=== PATIENT | male | born 1975 | race Caucasian/White ===

== ENCOUNTER 2019-12-04 00:58 | Emergency (ER) | payer OTHER ==
[2019-12-04 02:20] LABS: Barbiturates NEGATIVE (NEGATIVE); Benzodiazepines POSITIVE (NEGATIVE); Cocaine NEGATIVE (NEGATIVE); METHAMPHETAM POSITIVE (NEGATIVE); Methadone NEGATIVE (NEGATIVE); Opiates NEGATIVE (NEGATIVE); Phencyclidine NEGATIVE (NEGATIVE); THC Cannibis POSITIVE (NEGATIVE)
--- NOTE | 2019-12-04 02:42 | ER ---
Nurse's Notes [facility] Name: Karl Hinojosa Age: 44 yrs Sex: Male : 1975 Arrival Date: 12/04/2019 Time: 00:59 Bed 17 Private MD: Diagnosis: Hallucinations. Substances Abuse Presentation: 12/04 01:09 Chief complaint: EMS states: They were toned by Hotel staff because Pt was seeing and wh hearing witches. Pt states he sees and hears the witches. Pt admits to taking small amount of amphetamines prior to having the hallucinations. Pt with Hx of Bipolar and Schizophrenia with prescription meds. Coronavirus screen: The patient has NOT traveled to [place] in the past 14 days. Ebola Screen: Patient negative for fever greater than or equal to 101.5 degrees Fahrenheit, and additional compatible Ebola Virus Disease symptoms Patient denies exposure to infectious person. Initial Sepsis Screen: Does the patient meet any 2 criteria? No. Patient's initial sepsis screen is negative. Does the patient have a suspected source of infection? No. Patient's initial sepsis screen is negative. Risk Assessment: Do you want to hurt yourself or someone else? Patient reports no desire to harm self or others. 01:09 Method Of Arrival: EMS: [facility] 01:09 Acuity: JENSEN 3 01:16 Onset of symptoms is unknown. Historical: - Allergies: 01:14 No Known Allergies; wh - PMHx: 01:14 Anxiety; Bipolar disorder; Hypertension; Schizophrenia; CVA; wh - PSHx: 01:14 Brain Surgery; Fistula; - Immunization history:: Adult Immunizations not up to date. - Social history:: Smoking status: Patient uses street drugs, marijuana, Methamphetamine (Meth) Patient/guardian denies using. Screenin:15 Abuse screen: Denies threats or abuse. Denies injuries from another. Nutritional screening: No deficits noted. Tuberculosis screening: No symptoms or risk factors identified. Fall Risk None identified. Assessment: 01:15 General: Appears in no apparent distress. Behavior is calm, cooperative, appropriate wh for age. Pain: Denies pain. Neuro: Level of Consciousness is awake, alert, obeys commands, Oriented to person, place, time, situation, Appropriate for age Reports visual and auditory hallucinations. Cardiovascular: Heart tones S1 S2. Respiratory: Airway is patent Respiratory effort is even, unlabored, Respiratory pattern is regular, symmetrical. GI: Abdomen is flat, non-distended. : No signs and/or symptoms were reported regarding the genitourinary system. EENT: No signs and/or symptoms were reported regarding the EENT system. Derm: Skin is intact, is healthy with good turgor, Skin is pink, warm \T\ dry. normal. Musculoskeletal: Circulation, motion, and sensation intact. 01:30 Reassessment: Pt alert and oriented X4, speaking with MD Haywood, stating he doesn't want to stay here nor any psyche facility. Pt admits drug use and hallucinations. Pt asking to be discharged. 02:45 Reassessment: Patient appears in no apparent distress at this time. No changes from previously documented assessment. Patient and/or family updated on plan of care and expected duration. Pain level reassessed. Patient is alert, oriented x 3, equal unlabored respirations, skin warm/dry/pink. Vital Signs: 01:09 BP 141 / 101; Pulse 89; Resp 18; Temp 98.3; Pulse Ox 100% ; Weight 63.5 kg; Height 5 wh ft. 7 in. (170.18 cm); 02:30 BP 138 / 98; Pulse 54; Resp 18; Pulse Ox 99% ; wh 01:09 Body Mass Index 21.93 (63.50 kg, 170.18 cm) ED Course: 00:59 Patient arrived in ED. ds1 01:01 Mark Haywood MD is Attending Physician. pkl 01:09 Harry Boyce is Primary Nurse. 01:12 Triage completed. 01:16 Arm band placed on right wrist. 01:17 Patient has correct armband on for positive identification. Bed in low position. Call light in reach. Side rails up X 1. Pulse ox on. NIBP on. 02:55 No provider procedures requiring assistance completed. Patient did not have IV access during this emergency room visit. Administered Medications: No medications were administered Outcome: 02:40 Discharge ordered by . pkl 02:55 Discharged to home ambulatory. wh 02:55 Condition: stable 02:55 Discharge instructions given to patient, Instructed on discharge instructions, follow up and referral plans. POC Demonstrated understanding of instructions, follow-up care, POC 02:55 Patient left the ED. wh Signatures: Mark Haywood MD MD pkl [place], [place] ds1 Harry Boyce Corrections: (The following items were deleted from the chart) 02:51 01:09 Chief complaint: EMS states: They were toned by Pt as he was seeing and hearing wh witches. Pt states he sees and hears the witches. Pt admits to taking small amount of amphetamines prior to having the hallucinations. Pt with Hx of Bipolar and Schizophrenia with prescription meds
--- NOTE | 2019-12-04 02:42 | EDPHYS ---
Physician Documentation [facility] Name: Karl Hinojosa Age: 44 yrs Sex: Male : 1975 Arrival Date: 12/04/2019 Time: 00:59 Bed 17 Private MD: ED Physician Mark Haywood HPI: 12/04 01:34 This 44 yrs old Male presents to ER via EMS with complaints of Hallucination. pkl 01:34 The patient presents to the emergency department with Patient having visual and pkl auditory hallucinations. Onset: The symptoms/episode began/occurred today. Past psychiatric history: Bipolar disorder. Associated signs and symptoms: The patient has no apparent associated signs or symptoms. Historical: - Allergies: :14 No Known Allergies; wh - PMHx: :14 Anxiety; Bipolar disorder; Hypertension; Schizophrenia; CVA; wh - PSHx: :14 Brain Surgery; Fistula; wh - Immunization history:: Adult Immunizations not up to date. - Social history:: Smoking status: Patient uses street drugs, marijuana, Methamphetamine (Meth) Patient/guardian denies using. ROS: 01:34 Eyes: Negative for injury, pain, redness, and discharge, ENT: Negative for injury, pkl pain, and discharge, Neck: Negative for injury, pain, and swelling, Cardiovascular: Negative for chest pain, palpitations, and edema, Respiratory: Negative for shortness of breath, cough, wheezing, and pleuritic chest pain, Abdomen/GI: Negative for abdominal pain, nausea, vomiting, diarrhea, and constipation, Back: Negative for injury and pain, : Negative for injury, bleeding, discharge, and swelling, MS/Extremity: Negative for injury and deformity, Skin: Negative for injury, rash, and discoloration, Neuro: Negative for headache, weakness, numbness, tingling, and seizure. 01:34 Psych: Positive for auditory hallucinations, visual hallucinations, Negative for suicide gesture, suicidal ideation. Exam: 01:34 Head/Face: Normocephalic, atraumatic. Eyes: Pupils equal round and reactive to light, pkl extra-ocular motions intact. Lids and lashes normal. Conjunctiva and sclera are non-icteric and not injected. Cornea within normal limits. Periorbital areas with no swelling, redness, or edema. ENT: Nares patent. No nasal discharge, no septal abnormalities noted. Tympanic membranes are normal and external auditory canals are clear. Oropharynx with no redness, swelling, or masses, exudates, or evidence of obstruction, uvula midline. Mucous membranes moist. Neck: Trachea midline, no thyromegaly or masses palpated, and no cervical lymphadenopathy. Supple, full range of motion without nuchal rigidity, or vertebral point tenderness. No Meningismus. Chest/axilla: Normal chest wall appearance and motion. Nontender with no deformity. No lesions are appreciated. Cardiovascular: Regular rate and rhythm with a normal S1 and S2. No gallops, murmurs, or rubs. Normal PMI, no JVD. No pulse deficits. Respiratory: Lungs have equal breath sounds bilaterally, clear to auscultation and percussion. No rales, rhonchi or wheezes noted. No increased work of breathing, no retractions or nasal flaring. Abdomen/GI: Soft, non-tender, with normal bowel sounds. No distension or tympany. No guarding or rebound. No evidence of tenderness throughout. Back: No spinal tenderness. No costovertebral tenderness. Full range of motion. Skin: Warm, dry with normal turgor. Normal color with no rashes, no lesions, and no evidence of cellulitis. MS/ Extremity: Pulses equal, no cyanosis. Neurovascular intact. Full, normal range of motion. Neuro: Awake and alert, GCS 15, oriented to person, place, time, and situation. Cranial nerves II-XII grossly intact. Motor strength 5/5 in all extremities. Sensory grossly intact. Cerebellar exam normal. Normal gait. 01:34 Psych: Behavior/mood is cooperative, Affect is calm, Patient has no thoughts/intents to harm self or others. Delusions/hallucinations are present and described as Seeing and hearing witches. Said he took some amphetamines earlier today. Patient not suicidal or homicidal. Does not want to be transferred to psychiatric facility. Vital Signs: 01:09 BP 141 / 101; Pulse 89; Resp 18; Temp 98.3; Pulse Ox 100% ; Weight 63.5 kg; Height 5 wh ft. 7 in. (170.18 cm); 02:30 BP 138 / 98; Pulse 54; Resp 18; Pulse Ox 99% ; wh 01:09 Body Mass Index 21.93 (63.50 kg, 170.18 cm) wh MDM: 01:01 Patient medically screened. pkl 02:38 Data reviewed: vital signs, nurses notes, lab test result(s). pkl 12/04 01:43 Order name: Urine Drug Screen; Complete Time: 02:36 Administered Medications: No medications were administered Disposition: 12/04/19 02:40 Discharged to Home. Impression: Hallucinations. Substances Abuse. - Condition is Stable. - Discharge Instructions: What You Need To Know About Illegal Drug Use and Dependence, Youth. - Medication Reconciliation Form, Thank You Letter, Antibiotic Education, Prescription Opioid Use form. - Follow up: Private Physician; When: 2 - 3 days; Reason: Re-evaluation by your physician. - Problem is new. - Symptoms have improved. Signatures: Dispatcher [employer] EDMark Che MD MD pkl [place], [place] Corrections: (The following items were deleted from the chart) 02:55 02:40 12/04/2019 02:40 Discharged to Home. Impression: Hallucinations. Substances wh Abuse. Condition is Stable. Forms are Medication Reconciliation Form, Thank You Letter, Antibiotic Education, Prescription Opioid Use. Follow up: Private Physician; When: 2 - 3 days; Reason: Re-evaluation by your physician. Problem is new. Symptoms have improved. pkl
[2019-12-04 03:05] VITALS: TEMP 98.3
[2019-12-04 03:06] VITALS: BP 138/98; O2SAT 99
== END 2019-12-04 02:55 | disposition home or self-care (01) ==
LOC: ER 00:58
DX: R44.1 Visual hallucinations (principal); F15.10 Other stimulant abuse, uncomplicated
CPT/HCPCS: 80307; 99283

== ENCOUNTER 2019-12-16 06:50 | Emergency (ER) | payer OTHER ==
[2019-12-16 08:45] LABS: Absolute Lymphocytes (CBC) 1.4 K/uL (0.7-4.9); Basophils % 0.6 % (0-1.3); Hematocrit 40.2 % (39.6-49.0); Lymphocytes % 15.9 % (15.3-44.8); RBC Red Blood Cell Count 4.73 M/uL (4.33-5.43)
[2019-12-16 08:50] LABS: Protime INR 3.96
[2019-12-16 09:02] LABS: ALT/SGPT 36 U/L (12-78); AST/SGOT 128 U/L (15-37); Albumin 4.3 g/dL (3.4-5.0); Alkaline Phosphatase 69 U/L (45-117); BUN Blood Urea Nitrogen 36 mg/dL (7-18); Bicarbonate 26 mmol/L (21-32); Bilirubin Direct 0.1 mg/dL (0-0.2); Bilirubin Total 0.5 mg/dL (0.2-1.0); Glucose Level 159 mg/dL (74-106); Potassium 3.4 mmol/L (3.5-5.1); Protein, Total 7.8 g/dL (6.4-8.2); Sodium Level 144 mmol/L (136-145)
[2019-12-16] MEDS ORDERED: NA CHLORIDE 0.9% 1,000 ML ONE (09:26)
[2019-12-16] MEDS ORDERED: POTASSIUM CL SA 10 MEQ TAB PO ONE (10:42)
--- NOTE | 2019-12-16 11:27 | EKG ---
Test Date: 2019-12-16 Test Time: 08:47:02 Iron Setter: HENRY MEASUREMENT RESULTS: Intervals: Rate: 90 [place]: 142 QRSD: 84 QT: 374 QTc: 457 [place]: P: 67 [place]: 142 QRS: 89 T: 74 INTERPRETIVE STATEMENTS: Normal sinus rhythm Normal ECG No previous ECG available for comparison Electronically Signed On 12-16-19 11:26:49 CDT by Jaden Toro
[2019-12-16 11:57] LABS: Barbiturates NEGATIVE (NEGATIVE); Benzodiazepines POSITIVE (NEGATIVE); Cocaine NEGATIVE (NEGATIVE); METHAMPHETAM POSITIVE (NEGATIVE); Methadone NEGATIVE (NEGATIVE); Opiates NEGATIVE (NEGATIVE); Phencyclidine NEGATIVE (NEGATIVE); THC Cannibis POSITIVE (NEGATIVE)
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
--- NOTE | 2019-12-16 12:52 | ER ---
Nurse's Notes [facility] Name: Karl Hinojosa Age: 44 yrs Sex: Male : 1975 Arrival Date: 12/16/2019 Time: 06:57 Bed 5 Private MD: Diagnosis: Visual hallucinations;Schizoaffective disorder, bipolar type;Acute Psychosis Presentation: 12/15 07:13 Chief complaint: Patient states: "people were in my house last night and wouldn't leave dm5 so I punched the window". Visitor with patient states that no one was in house when she went by, the police even came by and didn't see anyone. Pt has history of bipolar with psychotic features. Pt also has history of strokes. Coronavirus screen: The patient has NOT traveled to a country currently being monitored by the [facility] within the last 14 days. The patient has NOT had contact with any known and/or suspected case of coronavirus. Ebola Screen: Patient negative for fever greater than or equal to 101.5 degrees Fahrenheit, and additional compatible Ebola Virus Disease symptoms Patient denies exposure to infectious person. Patient denies travel to an Ebola-affected area in the 21 days before illness onset. No symptoms or risks identified at this time. Complicating Factors: Glass or an other foreign body is present in the wound. Initial Sepsis Screen: Does the patient meet any 2 criteria? No. Patient's initial sepsis screen is negative. Does the patient have a suspected source of infection? No. Patient's initial sepsis screen is negative. Risk Assessment: Do you want to hurt yourself or someone else? Patient reports no desire to harm self or others. Note pt denies wanting to hurt himself. Pt on unknown antipsychotic, last taken last night, visitor would like pt to get help. 07:13 Method Of Arrival: Ambulatory dm5 07:46 Acuity: JENSEN 2 dm5 16:25 Onset of symptoms was December 16, 2019. tw2 Historical: - Allergies: 07:45 No Known Allergies; dm5 - PMHx: 07:45 Anxiety; Bipolar disorder; CVA; Hypertension; Schizophrenia; dm5 - Immunization history:: Last tetanus immunization: unknown. - Social history:: Smoking status: . Screenin:24 Abuse screen: Denies threats or abuse. Nutritional screening: No deficits noted. tw2 Tuberculosis screening: No symptoms or risk factors identified. Fall Risk None identified. Assessment: 07:01 General: Appears in no apparent distress. Behavior is anxious. Pain: Complains of pain tw2 in right hand. Neuro: Level of Consciousness is awake, alert, obeys commands, Oriented to person, place, time, situation. Cardiovascular: Heart tones S1 S2 Patient's skin is warm and dry. Respiratory: Airway is patent Respiratory effort is even, unlabored, Respiratory pattern is regular, symmetrical, Breath sounds are clear bilaterally. GI: No signs and/or symptoms were reported involving the gastrointestinal system. Abdomen is flat. 07:01 Musculoskeletal: Circulation, motion, and sensation intact. Range of motion: intact in tw2 all extremities. Injury Description: Laceration sustained to right hand is clean, superficial, 0.5 to 2.5 cm long, not bleeding. 08:30 Reassessment: Patient appears in no apparent distress at this time. Patient and/or tw2 family updated on plan of care and expected duration. Pain level reassessed. Patient is alert, oriented x 3, equal unlabored respirations, skin warm/dry/pink. 08:30 General: Behavior is pt appears to be paranoid, states "i am concerned about the tw2 curtain, can we leave it open", exam room curtain left open for pts comfort and providers recommendation. 09:23 Reassessment: Patient appears in no apparent distress at this time. Patient and/or tw2 family updated on plan of care and expected duration. Pain level reassessed. Patient is alert, oriented x 3, equal unlabored respirations, skin warm/dry/pink. 10:30 Reassessment: Patient appears in no apparent distress at this time. Patient and/or hb family updated on plan of care and expected duration. Pain level reassessed. Patient is alert, oriented x 3, equal unlabored respirations, skin warm/dry/pink. 11:30 Reassessment: Patient appears in no apparent distress at this time. No changes from previously documented assessment. Patient and/or family updated on plan of care and expected duration. Pain level reassessed. 11:56 Reassessment: Nurse to nurse report given to Leta at [facility]. 12:15 Reassessment: Patient appears in no apparent distress at this time. Patient and/or hb family updated on plan of care and expected duration. Pain level reassessed. Patient is alert, oriented x 3, equal unlabored respirations, skin warm/dry/pink. 13:15 Reassessment: Patient appears in no apparent distress at this time. Patient and/or hb family updated on plan of care and expected duration. Pain level reassessed. Patient is alert, oriented x 3, equal unlabored respirations, skin warm/dry/pink. Vital Signs: 07:12 BP 126 / 95; Pulse 94; Resp 18; Temp 98.2; Pulse Ox 100% ; Weight 63.5 kg; Height 5 ft. hb 7 in. (170.18 cm); Pain 0/10; 08:30 BP 144 / 92; Pulse 94; Resp 19; Pulse Ox 99% on R/A; tw2 09:21 BP 132 / 101; Pulse 90; Resp 17; Pulse Ox 100% on R/A; tw2 11:00 BP 156 / 86; Pulse 88; Resp 15; Pulse Ox 99% on R/A; hb 13:00 BP 146 / 84; Pulse 81; Resp 16; Pulse Ox 99% on R/A; hb 07:12 Body Mass Index 21.93 (63.50 kg, 170.18 cm) hb ED Course: 06:57 Patient arrived in ED. ds1 07:01 Bed in low position. Call light in reach. Pulse ox on. NIBP on. tw2 07:02 Horacio Fraga PA is PHCP. jr8 07:02 Herrera Bull MD is Attending Physician. jr8 07:06 Aurelia Sanders, RN is Primary Nurse. tw2 07:16 Triage completed. dm5 08:28 Initial lab(s) drawn, by mt, sent to lab. Inserted saline lock: 22 gauge in right jb1 antecubital area, using aseptic technique. Blood collected. 08:50 EKG done, by mechanical design technician. reviewed by Horacio CLEANING. at1 09:31 Arm band placed on. tw2 11:43 faxed chart to [facility]. bd 16:25 No provider procedures requiring assistance completed. Patient transferred, IV remains tw2 in place. Patient maintains SpO2 saturation greater than 95% on room air. Administered Medications: 09:25 Drug: NS 0.9% 1000 ml Route: IV; Rate: 1000 ml; Site: right antecubital; hb 10:50 Drug: Potassium Chloride 40 mEq Route: PO; hb Outcome: 12:50 ER care complete, transfer ordered by MD. cross 16:25 Patient left the ED. tw2 16:25 Transferred by ground EMS tw2 16:25 Condition: stable 16:25 Instructed on the need for transfer. Signatures: Karl [place] jb1 Sunita Clemons Deana RN RN dm5 Hawa Wright1 Horacio Fraga PA PA jr8 Marianna Delgado, manager paper EKG Tat1 Olive Virk RN RN Aurelia Sanders RN RN tw2 Corrections: (The following items were deleted from the chart) 07:46 07:13 Acuity: JENSEN 4 dm5 dm5 12:00 11:56 Reassessment: Nurse to nurse report given to Leta hb hb
[2019-12-16 16:34] VITALS: TEMP 98.2
[2019-12-16 16:39] VITALS: O2SAT 99
[2019-12-16 16:40] VITALS: BP 146/84
== END 2019-12-16 16:25 ==
LOC: ER 06:50
DX: F25.9 Schizoaffective disorder, unspecified (principal); F23 Brief psychotic disorder
CPT/HCPCS: 93005; 85025; 80048; 36415; 80320; 80329 ×2; 85610; 80076; 80307 ×8; 85730; 99285; J7030

== ENCOUNTER 2019-12-30 01:25 | Emergency (ER) | payer OTHER ==
[2019-12-30 02:11] LABS: Barbiturates NEGATIVE (NEGATIVE); Benzodiazepines POSITIVE (NEGATIVE); Cocaine NEGATIVE (NEGATIVE); METHAMPHETAM POSITIVE (NEGATIVE); Methadone NEGATIVE (NEGATIVE); Opiates NEGATIVE (NEGATIVE); Phencyclidine NEGATIVE (NEGATIVE); THC Cannibis POSITIVE (NEGATIVE)
[2019-12-30 02:14] LABS: Absolute Lymphocytes (CBC) 1.7 K/uL (0.7-4.9); Basophils % 0.9 % (0-1.3); Hematocrit 37.7 % (39.6-49.0); Lymphocytes % 31.3 % (15.3-44.8); MPV 7.4 fL (7.6-11.3)
[2019-12-30 02:18] LABS: Protime INR 2.52
[2019-12-30] MEDS ORDERED: NA CHLORIDE 0.9% 1,000 ML ONE (02:25)
[2019-12-30 02:48] LABS: Albumin 4.2 g/dL (3.4-5.0); Bilirubin Direct 0.1 mg/dL (0-0.2); Bilirubin Total 0.5 mg/dL (0.2-1.0); Potassium 3.4 mmol/L (3.5-5.1); Protein, Total 7.3 g/dL (6.4-8.2)
--- NOTE | 2019-12-30 03:13 | EDPHYS ---
Physician Documentation [facility] Name: Karl Hinojosa Age: 44 yrs Sex: Male : 1975 Arrival Date: 12/30/2019 Time: : Bed 20 Private MD: FABIOLA Physician Fawad Seals HPI: 12/29 03:09 This 44 yrs old Male presents to ER via Ambulatory with complaints of Psych howie Problem. 03:09 The patient presents to the emergency department with psychosis, has experienced howie auditory hallucinations, has experienced visual hallucinations. Onset: The symptoms/episode began/occurred 2 day(s) ago. Past psychiatric history: Prior diagnosis: bipolar disorder. Associated signs and symptoms: The patient has no apparent associated signs or symptoms. Severity of symptoms: At their worst the symptoms were mild in the emergency department the symptoms are unchanged. It is unknown whether or not the patient has had similar symptoms in the past. Historical: - Allergies: 01:51 No Known Allergies; rv - PMHx: 01:51 Anxiety; Bipolar disorder; CVA; Hypertension; Schizophrenia; rv - Immunization history:: Adult Immunizations up to date. - Social history:: Smoking status: Patient reports the use of cigarette tobacco products, denies chronic smoking, but will smoke occasionally. - Family history:: not pertinent. ROS: 03:09 Constitutional: Negative for fever, chills, and weight loss, Eyes: Negative for injury, howie pain, redness, and discharge, ENT: Negative for injury, pain, and discharge, Neck: Negative for injury, pain, and swelling, Cardiovascular: Negative for chest pain, palpitations, and edema, Respiratory: Negative for shortness of breath, cough, wheezing, and pleuritic chest pain, Abdomen/GI: Negative for abdominal pain, nausea, vomiting, diarrhea, and constipation, Back: Negative for injury and pain, : Negative for injury, bleeding, discharge, and swelling, MS/Extremity: Negative for injury and deformity, Skin: Negative for injury, rash, and discoloration, Neuro: Negative for headache, weakness, numbness, tingling, and seizure, Allergy/Immunology: Negative for hives, rash, and allergies, Endocrine: Negative for neck swelling, polydipsia, polyuria, polyphagia, and marked weight changes, Hematologic/Lymphatic: Negative for swollen nodes, abnormal bleeding, and unusual bruising. 03:09 Psych: Positive for auditory hallucinations, visual hallucinations. Exam: 03:09 Constitutional: This is a well developed, well nourished patient who is awake, alert, howie and in no acute distress. Head/Face: Normocephalic, atraumatic. Eyes: Pupils equal round and reactive to light, extra-ocular motions intact. Lids and lashes normal. Conjunctiva and sclera are non-icteric and not injected. Cornea within normal limits. Periorbital areas with no swelling, redness, or edema. ENT: Nares patent. No nasal discharge, no septal abnormalities noted. Tympanic membranes are normal and external auditory canals are clear. Oropharynx with no redness, swelling, or masses, exudates, or evidence of obstruction, uvula midline. Mucous membranes moist. Neck: Trachea midline, no thyromegaly or masses palpated, and no cervical lymphadenopathy. Supple, full range of motion without nuchal rigidity, or vertebral point tenderness. No Meningismus. Chest/axilla: Normal chest wall appearance and motion. Nontender with no deformity. No lesions are appreciated. Cardiovascular: Regular rate and rhythm with a normal S1 and S2. No gallops, murmurs, or rubs. Normal PMI, no JVD. No pulse deficits. Respiratory: Lungs have equal breath sounds bilaterally, clear to auscultation and percussion. No rales, rhonchi or wheezes noted. No increased work of breathing, no retractions or nasal flaring. Abdomen/GI: Soft, non-tender, with normal bowel sounds. No distension or tympany. No guarding or rebound. No evidence of tenderness throughout. Back: No spinal tenderness. No costovertebral tenderness. Full range of motion. Skin: Warm, dry with normal turgor. Normal color with no rashes, no lesions, and no evidence of cellulitis. MS/ Extremity: Pulses equal, no cyanosis. Neurovascular intact. Full, normal range of motion. Neuro: Awake and alert, GCS 15, oriented to person, place, time, and situation. Cranial nerves II-XII grossly intact. Motor strength 5/5 in all extremities. Sensory grossly intact. Cerebellar exam normal. Normal gait. 03:09 Psych: Behavior/mood is pleasant, cooperative, Affect is calm, Oriented to person, place, time, Patient has no thoughts/intents to harm self or others. Judgement / Insight is normal. Delusions/hallucinations are present and described as seeing people in his house, took pictures of them, no people seen. Vital Signs: 01:45 BP 126 / 90; Pulse 95; Resp 16; Temp 98.5; Pulse Ox 100% on R/A; Weight 63.5 kg; Height rv 5 ft. 7 in. (170.18 cm); Pain 8/10; 02:26 BP 144 / 83; Pulse 87; Resp 19; Pulse Ox 100% on R/A; rv 03:29 BP 138 / 86; Pulse 81; Resp 16; Pulse Ox 100% on R/A; rv 01:45 Body Mass Index 21.93 (63.50 kg, 170.18 cm) rv MDM: 01:39 Patient medically screened. [facility] 03:09 Data reviewed: vital signs, nurses notes, lab test result(s), EKG. [facility] 12/29 01:40 Order name: Acetaminophen; Complete Time: 03:08 [facility] 12/29 01:40 Order name: Basic Metabolic Panel; Complete Time: 03:08 [facility] 12/29 01:40 Order name: CBC with Diff; Complete Time: 02:41 [facility] 12/29 01:40 Order name: ETOH Level; Complete Time: 02:41 [facility] 12/29 01:40 Order name: Hepatic Function; Complete Time: 03:08 [facility] 12/29 01:40 Order name: PT-INR; Complete Time: 02:41 [facility] 12/29 01:40 Order name: Ptt, Activated; Complete Time: 02:41 howie 12/29 01:40 Order name: Salicylate; Complete Time: 03:08 [facility] 12/29 01:40 Order name: Urine Drug Screen; Complete Time: 02:41 [facility] 12/29 01:40 Order name: EKG; Complete Time: 01:41 howie 12/29 02:47 Order name: Depakote 12/29 02:50 Order name: Valproic Acid (Depakene) Level; Complete Time: 03:08 [facility] 12/29 01:40 Order name: EKG - Nurse/Tech; Complete Time: 02:27 [facility] 12/29 01:40 Order name: IV Saline Lock; Complete Time: 02:11 howie 12/29 01:40 Order name: Labs collected and sent; Complete Time: 02:11 [facility] 12/29 01:40 Order name: Urine Dipstick-Ancillary (obtain specimen); Complete Time: 02:12 howie Administered Medications: 02:24 Drug: NS 0.9% 1000 ml Route: IV; Rate: 1 bolus; Site: right antecubital; rv 03:30 Follow up: IV Status: Completed infusion; IV Intake: 500ml rv Disposition: 12/30/19 03:13 Discharged to Home. Impression: Bipolar disorder, Schizophrenia, Abuse of non-psychoactive substances, Adverse effect of amphetamines. - Condition is Stable. - Discharge Instructions: Bipolar Disorder, Substance Use Disorder, Schizophrenia, Stimulant Use Disorder-Methamphetamines. - Medication Reconciliation Form, Thank You Letter, Antibiotic Education, Prescription Opioid Use form. - Follow up: Private Physician; When: 2 - 3 days; Reason: Recheck today's complaints, Continuance of care, Re-evaluation by your physician. - Problem is new. - Symptoms have improved. Signatures: Dispatcher [employer] EDIA Fawad Seals MD MD cha Vicente, Ronaldo RN RN rv Corrections: (The following items were deleted from the chart) 02:50 02:48 Valproic Acid (Depakene) Level ordered. [facility] EDIA 03:31 03:13 12/30/2019 03:13 Discharged to Home. Impression: Bipolar disorder; Schizophrenia; rv Abuse of non-psychoactive substances; Adverse effect of amphetamines. Condition is Stable. Forms are Medication Reconciliation Form, Thank You Letter, Antibiotic Education, Prescription Opioid Use. Follow up: Private Physician; When: 2 - 3 days; Reason: Recheck today's complaints, Continuance of care, Re-evaluation by your physician. Problem is new. Symptoms have improved. howie
--- NOTE | 2019-12-30 03:13 | ER ---
Nurse's Notes [facility] Name: Karl Hinojosa Age: 44 yrs Sex: Male : 1975 Arrival Date: 12/30/2019 Time: 01:26 Bed 20 Private MD: Diagnosis: Bipolar disorder;Schizophrenia;Abuse of non-psychoactive substances;Adverse effect of amphetamines Presentation: 12/29 01:45 Chief complaint: Patient states: PATIENT IS SHOWING PICTURES OF SOMETHING HE THINKS ARE rv PEOPLE WHO IS TRYING TO HURT HIM. PATIENT IS SEEING THINGS AND HEARING THINGS. DENIES HURTING HIMSELF OR THE OTHERS. PATIENT CAME IN BECAUSE THE SISTER WANTS HIM TO BE EVALUATED. Coronavirus screen: Patient denies fever greater than 100.4F, cough, shortness of breath, or difficulty breathing. Proceed with normal triage process. Ebola Screen: No symptoms or risks identified at this time. Initial Sepsis Screen: Does the patient meet any 2 criteria? No. Patient's initial sepsis screen is negative. Does the patient have a suspected source of infection? No. Patient's initial sepsis screen is negative. Risk Assessment: Do you want to hurt yourself or someone else? Patient reports no desire to harm self or others. 01:45 Method Of Arrival: Ambulatory rv 01:45 Acuity: JENSEN 2 bb 02:15 Onset of symptoms was December 29, 2019 at 23:00. rv Historical: - Allergies: 01:51 No Known Allergies; rv - PMHx: 01:51 Anxiety; Bipolar disorder; CVA; Hypertension; Schizophrenia; rv - Immunization history:: Adult Immunizations up to date. - Social history:: Smoking status: Patient reports the use of cigarette tobacco products, denies chronic smoking, but will smoke occasionally. - Family history:: not pertinent. Screenin:53 Abuse screen: Denies threats or abuse. Denies injuries from another. Nutritional rv screening: No deficits noted. Tuberculosis screening: No symptoms or risk factors identified. Fall Risk None identified. Assessment: 01:52 General: Appears in no apparent distress. Behavior is calm, cooperative. Pain: rv Complains of pain in back Pain currently is 8 out of 10 on a pain scale. Neuro: Level of Consciousness is awake, alert, obeys commands, Oriented to person, place, time, situation. Cardiovascular: Patient's skin is warm and dry. Respiratory: Airway is patent. Derm: Skin is intact. Musculoskeletal: Reports pain in back Pain is 8 out of 10 on a pain scale. 02:25 Reassessment: patient does not want to stay on the bed, keeps on walking around and rv taking pictures. 03:02 Reassessment: DR GRANDA TALKED TO THE PATIENT. rv Psych: 02:12 Subjective: Hallucinations are auditory, visual, denies thoughts of hurting self or the rv others. Objective: Patient is cooperative, Speech is normal, Affect is appropriate. Interventions: Urine collected and sent for urine drug test. Suicide Risk Assessment: Sad Person Scale: Sex of patient: Male: Score 1 point. Age of patient: Score 0 point if patient falls outside of specified age parameters. Rational Thinking: Score 1 point if patient is lacking rational thinking. Safety Checks: Door is open. Pt denies substance abuse. Vital Signs: 01:45 BP 126 / 90; Pulse 95; Resp 16; Temp 98.5; Pulse Ox 100% on R/A; Weight 63.5 kg; Height rv 5 ft. 7 in. (170.18 cm); Pain 8/10; 02:26 BP 144 / 83; Pulse 87; Resp 19; Pulse Ox 100% on R/A; rv 03:29 BP 138 / 86; Pulse 81; Resp 16; Pulse Ox 100% on R/A; rv 01:45 Body Mass Index 21.93 (63.50 kg, 170.18 cm) rv ED Course: 01:26 Patient arrived in ED. cl3 01:39 Fawad Granda MD is Attending Physician. howie 01:45 Nicola Carrasquillo RN is Primary Nurse. rv 01:50 Triage completed. rv 01:52 Arm band placed on left wrist. Patient placed in the treatment room, on a stretcher, rv Patient notified of wait time. 01:53 Patient has correct armband on for positive identification. Pulse ox on. NIBP on. rv 02:12 Initial lab(s) drawn, by me, sent to lab. Inserted saline lock: 18 gauge in right rv antecubital area, using aseptic technique. Blood collected. 03:29 No provider procedures requiring assistance completed. IV discontinued, intact, rv bleeding controlled, No redness/swelling at site. Pressure dressing applied. Administered Medications: 02:24 Drug: NS 0.9% 1000 ml Route: IV; Rate: 1 bolus; Site: right antecubital; rv 03:30 Follow up: IV Status: Completed infusion; IV Intake: 500ml rv Intake: 03:30 IV: 500ml; Total: 500ml. rv Outcome: 03:13 Discharge ordered by . howie 03:30 Discharged to home ambulatory. rv 03:30 Condition: good 03:30 Discharge instructions given to patient, Instructed on discharge instructions, follow up and referral plans. Demonstrated understanding of instructions, follow-up care. 03:31 Patient left the ED. rv Signatures: Fawad Granda MD MD cha Ballard, Brenda, RN RN bb Nicola Carrasquillo, RN RN Leana Rose cl3 Corrections: (The following items were deleted from the chart) 01:50 01:45 Acuity: JENSEN 3 rv cb
[2019-12-30 03:41] VITALS: TEMP 98.5; O2SAT 100
[2019-12-30 03:44] VITALS: BP 138/86
--- NOTE | 2019-12-30 10:56 | EKG ---
Test Date: 2019-12-30 Test Time: 02:21:55 End Trimmer: RACHID MEASUREMENT RESULTS: Intervals: Rate: 67 IA: 120 QRSD: 86 QT: 422 QTc: 445 [place]: P: 61 IA: 120 QRS: 73 T: 67 INTERPRETIVE STATEMENTS: Normal sinus rhythm Normal ECG Compared to ECG 12/16/2019 08:47:02 No significant changes Electronically Signed On 12-30-19 10:56:07 CDT by James Jarquin
== END 2019-12-30 03:31 | disposition home or self-care (01) ==
LOC: ER 01:25
DX: F31.9 Bipolar disorder, unspecified (principal); F20.9 Schizophrenia, unspecified; F55.8 Abuse of other non-psychoactive substances; T43.625A Adverse effect of amphetamines, initial encounter; I10 Essential (primary) hypertension
CPT/HCPCS: 93005; 85025; 80048; 36415; 80320; 80329 ×2; 85610; 80076; 80164; 80307 ×8; 85730; 96360; 99284; J7030

== ENCOUNTER 2022-03-20 17:22 | Emergency (ER) | payer OTHER ==
--- OUTSIDE RECORDS SUMMARY | 2022-03-20 17:25 | XMS REPORT | Continuity of Care Document ---
:1975 Author Organization [facility] t Address [address] [place] [address] Care Team Providers Name Role Phone Nadeen Alexander Attending Clinician Unavailable Problems This patient has no known problems. Allergies, Adverse Reactions, Alerts This patient has no known allergies or adverse reactions. Medications Ordered Filled Start Stop Current Ordering Indication Dosage Frequency Signature Comments Components Source Medication Medication Date Date Medication? Clinician (SIG) Name Name Ipratropium Ipratropium 2020-0 2020- No Na Alexander 2 sprays Common Weleet[place] Weleetka 11-19 in each Spiri t 00:00: 00:00 nostril - CHI 00 :00 [facility] Thorazine Thorazine Yes Na Alexander not Co mmon defined [facility] HydrOXYzine HydrOXYzine Yes Na Alexander 1 tablet Common HCl HCl as needed [facility] Ziprasidone Ziprasidone Yes Na Alexander 1 capsule Common HCl HCl with food [facility] Sulfasalazi Sulfasalazi Yes Na Alexander 1 tablet Common ne ne [facility] Ziprasidone Ziprasidone Yes Na Alexander 1 capsule Common HCl HCl with food [facility] Divalproex Divalproex Yes Na Alexander 1 tablet Common Sodium Sodium [facility] Clonazepam Clonazepam Yes Na Alexander 1 tablet Common [facility] Pentasa Pentasa Yes Na Alexander 2 capsules Common [facility] Aspir-81 Aspir-81 Yes Na Alexander 1 tablet [facility] Coumadin Coumadin Yes Na Alexander 1 tablet [facility] baclofen baclofen Yes Na Alexander 1/2 tab C ommon [facility] Atenolol Atenolol Yes Na Alexander 1 tablet [facility] Warfarin Warfarin Yes Na Alexander 1 tablet Common Sodium Sodium [facility] PredniSONE PredniSONE Yes Na Alexander 1 tablet [facility] Procedures This patient has no known procedures. Encounters Start End Encounter Admission Attending Care Care Encounter Source Date/Time Date/Time Type Type Clinicians Facility Department ID 2022-03-09 Outpatient Alexander, Na STLMLC STL[facility] [id number] 2 Common 16:40:01 [facility] 2022-03-07 Outpatient Alexander, Na STLMLC STLMLC [id number] 2 Common 09:38:00 [facility] 2021-12-26 Outpatient Alexander, Na STLMLC STLMLC [id number] 2 Common 11:44:02 [facility] 2021-12-21 Outpatient Alexander, Na STLMLC STLMLC [id number] 2 Common 15:23:00 [facility] 2021-12-07 Outpatient Alexander, Na STLMLC STLMLC [id number] 2 Common 16:13:01 [facility] 2021-12-01 Outpatient Alexander, Na STLMLC STLMLC [id number] 2 Common 11:52:01 [facility] 2021-11-01 Outpatient Alexander, Na STLMLC STLMLC [id number] 2 Common 13:45:31 [facility] 2021-11-01 Outpatient Alexander, Na STLMLC STLMLC [id number] 2 Common 13:33:37 [facility] 2021-11-01 Outpatient Alexander, Na STLMLC STLMLC [id number] 2 Common 13:22:39 [facility] 2021-11-01 Outpatient Alexander, Na STLMLC STLMLC [id number] 2 Common 12:51:22 [id number] [facility] 2021-11-01 Outpatient Alexander, Na STLMLC STLMLC [id number] 2 Common 11:56:05 [id number] [facility] 2021-11-01 Outpatient Alexander, Na STLMLC STLMLC [id number] 2 Common 11:55:43 [id number] [facility] 2021-11-01 Outpatient Alexander, Na STLMLC STLMLC [id number] 2 Common 11:19:35 [id number] [facility] 2021-11-01 Outpatient Alexander, Na STLMLC STLMLC [id number] 2 Common 11:17:04 [id number] [facility] 2022-03-14 2022-03-14 ambulatory STLMLC STLMLC [id number] Common 00:00:00 00:00:00 [facility] 2022-01-12 2022-01-12 ambulatory STLMLC STLMLC [id number] Common 00:00:00 00:00:00 [facility] 2021-12-13 2021-12-13 ambulatory STLMLC STLMLC [id number] Common 00:00:00 00:00:00 [facility] 2021-12-07 2021-12-07 ambulatory STLMLC STLMLC [id number] Common 00:00:00 00:00:00 [facility] 2021-06-09 2021-06-09 Outpatient [facility]C STL[facility]C [id number] Common 00:00:00 00:00:00 [facility] 2021-05-11 2021-05-11 Outpatient [facility]C STL[facility]C [id number] Common 00:00:00 00:00:00 [facility] 2021-05-10 2021-05-10 Outpatient [facility]C ST[facility]C [id number] Common 00:00:00 00:00:00 [facility] 2021-04-28 2021-04-28 Outpatient [facility]C STL[facility]C [id number] Common 00:00:00 00:00:00 [facility] 2021-04-06 2021-04-06 Outpatient [facility]C ST[facility]C [id number] Common 00:00:00 00:00:00 [facility] 2021-01-18 2021-01-18 Outpatient [facility]C ST[facility] [id number] Common 00:00:00 00:00:00 [facility] 2021-01-11 2021-01-11 Outpatient [facility]C ST[facility]C [id number] Common 00:00:00 00:00:00 [facility] 2020-11-18 2020-11-18 Outpatient [facility]C ST[facility]C [id number] Common 00:00:00 00:00:00 [facility] 2020-07-25 2020-07-25 Outpatient [facility]C ST[facility]C [id number] Common 00:00:00 00:00:00 [facility] 2020-07-11 2020-07-11 Outpatient [facility]C ST[facility]C [id number] Common 00:00:00 00:00:00 [facility] 2020-07-06 2020-07-06 Outpatient [facility] ST[facility]C [id number] Common 00:00:00 00:00:00 [facility] 2020-03-16 2020-03-16 [id number] Common 10:43:00 10:43:[address] [facility] 2020-02-12 2020-02-12 [facility] [id number] Common 14:05:00 14:05:[address] [facility] 2020-02-01 2020-02-01 [facility] [id number] Common 14:44:00 14:44:[address] [facility] 2020-01-25 2020-01-25 [facility] [id number] Common 08:57:00 08:57:[address] [facility] 2020-01-19 2020-01-19 [facility] [id number] Common 15:41:00 15:41:[address] [facility] 2020-01-12 2020-01-12 [facility] [id number] Common 13:40:00 13:40:[address] [facility] 2020-01-11 2020-01-11 Outpatient Sarah Smitht [id number] Common 14:19:00 14:19:[address] [facility] Results This patient has no known results.
--- NOTE | 2022-03-20 18:10 | EDPHYS ---
Physician Documentation [facility] Name: Karl Hinojosa Age: 47 yrs Sex: Male : 1975 Arrival Date: 03/20/2022 Time: 17:25 Bed Waiting Private MD: Narda Alexander ED Physician Warren Yañez HPI: 03/20 18:07 This 47 yrs old Male presents to ER via Ambulatory with complaints of Mental Evaluation.pm1 18:07 The patient presents to the emergency department with anxiety, over a relationship, pm1 finalization of his divorce. Past psychiatric history: Prior diagnosis: bipolar disorder, schizophrenia, anxiety, Psychiatric medications include: Renee Henriquez, Primary psychiatric physician: Dr. Hollis. Associated signs and symptoms: Pertinent negatives: homicidal ideation, suicide ideation. Severity of symptoms: in the emergency department the symptoms are worse. The patient has experienced similar episodes in the past, chronically, but today's symptoms are worse. The patient has not recently seen a physician, Last seen by his psychiatrist 1.5 months ago. Historical: - Allergies: 17:52 No Known Allergies; ap3 - Home Meds: 17:52 multiple unknown medications [Active]; ap3 - PMHx: 17:52 Anxiety; Bipolar disorder; CVA; Hypertension; Schizophrenia; ap3 - Immunization history:: Client reports having NOT received the Covid vaccine. - Social history:: Smoking status: Patient reports the use of cigarette tobacco products, smokes one-half pack cigarettes per day, Patient uses alcohol. ROS: 18:07 Constitutional: Negative for fever, chills, and weight loss, Cardiovascular: Negative pm1 for chest pain, palpitations, and edema, Respiratory: Negative for shortness of breath, cough, wheezing, and pleuritic chest pain, Back: Negative for injury and pain, MS/Extremity: Negative for injury and deformity, Neuro: Negative for headache, weakness, numbness, tingling, and seizure. 18:07 Psych: Positive for anxiety, Negative for homicidal ideation, suicide gesture, suicidal ideation. 18:07 All other systems are negative. Exam: 18:07 Constitutional: This is a well developed, well nourished patient who is awake, alert, pm1 and in no acute distress. Head/Face: Normocephalic, atraumatic. 18:07 Skin: Warm, dry with normal turgor. Normal color with no rashes, no lesions, and no evidence of cellulitis. MS/ Extremity: Pulses equal, no cyanosis. Neurovascular intact. Full, normal range of motion. 18:07 Eyes: Exam is negative for acute changes, Periorbital structures: no acute changes, Extraocular movements: no acute changes. 18:07 Cardiovascular: Exam negative for acute changes, Rate: normal, Rhythm: regular, Pulses: no pulse deficits are appreciated. 18:07 Respiratory: Exam negative for acute changes, respiratory distress, shortness of breath. 18:07 Neuro: Exam negative for acute changes, Orientation: is normal, Motor: moves all fours, Gait: is steady, at a normal pace, without difficulty. 18:07 Psych: Behavior/mood is cooperative, anxious, Affect is animated, Oriented to person, place, time, Patient has no thoughts/intents to harm self or others. Delusions/hallucinations are not present. Vital Signs: 17:47 BP 136 / 94; Pulse 86; Resp 18; Temp 98.8; Pulse Ox 98% ; Weight 71.21 kg; Height 5 ft. ap3 5 in. (165.10 cm); 17:47 Body Mass Index 26.13 (71.21 kg, 165.10 cm) ap3 MDM: 17:52 Patient medically screened. pm1 18:07 Physician consultation: Jeff Briceno MD was called at 18:07, was contacted at pm1 18:07, regarding consult, patient's condition, and will see patient in office, tomorrow, May give the patient medication in the ER to help calm his anxiety/stress. I will give the patient benzodiazepine in the ER and will instruct him to follow up with Dr. Briceno tomorrow morning. 18:07 Data interpreted: Pulse oximetry: on room air is 98 %. Interpretation: normal. pm1 18:26 Counseling: I had a detailed discussion with the patient and/or guardian regarding: the pm1 historical points, exam findings, and any diagnostic results supporting the discharge/admit diagnosis, the need for outpatient follow up, for definitive care, a psychiatrist, I discussed with the patient the plan of care that was determined by my discussion with Dr. Yoo. Patient to follow-up with him in the office tomorrow morning and giving the patient an antianxiety medication here in the ER to help with his symptoms until follow-up with his psychiatrist tomorrow. 19:58 Data reviewed: vital signs. pm1 Administered Medications: 19:28 Drug: Ativan (LORazepam) 2 mg Route: PO; ld1 20:07 Follow up: Response: No adverse reaction vc1 Disposition Summary: 03/20/22 18:09 Discharge Ordered Location: Home pm1 Problem: new pm1 Symptoms: have improved pm1 Condition: Stable pm1 Diagnosis - Acute stress reaction pm1 Followup: pm1 - With: Emergency Department - When: As needed - Reason: Worsening of condition Followup: pm1 - With: Jeff Briceno MD - When: Tomorrow - Reason: Recheck today's complaints, Continuance of care, Re-evaluation by your physician Discharge Instructions: - Discharge Summary Sheet pm1 - Stress, Adult pm1 - Managing Anxiety, Adult pm1 Forms: - Medication Reconciliation Form pm1 - Thank You Letter pm1 - Antibiotic Education pm1 - Prescription Opioid Use pm1 Signatures: Ozzy Espinoza, FORM MAKER PLASTER FORM MAKER PLASTER pm1 Marianna Siegel RN RN ap3 Selam Adair RN RN ld1 Bonny Chase RN vc1
--- NOTE | 2022-03-20 18:10 | ER ---
Nurse's Notes [facility] Name: Karl Hinojosa Age: 47 yrs Sex: Male : 1975 Arrival Date: 03/20/2022 Time: 17:25 Bed Waiting Private MD: Narda Alexander Diagnosis: Acute stress reaction Presentation: 03/20 17:47 Chief complaint: Patient states: he recently finalized on a divorce with a 28 year ap3 marriage. He states he feels overwhelmed, and he is feeling a lot of anxiety. He denies being suicidal and homicidal at this point. Patient states he is on multiple antipsychotics. Coronavirus screen: At this time, the client does not indicate any symptoms associated with coronavirus-19. Ebola Screen: No symptoms or risks identified at this time. Initial Sepsis Screen: Does the patient meet any 2 criteria? No. Patient's initial sepsis screen is negative. Does the patient have a suspected source of infection? No. Patient's initial sepsis screen is negative. Risk Assessment: Do you want to hurt yourself or someone else? Patient reports no desire to harm self or others. Onset of symptoms was March 20, 2022. 17:47 Method Of Arrival: Ambulatory ap3 17:47 Acuity: JENSEN 3 ap3 Triage Assessment: 17:53 General: Appears distressed, Behavior is anxious. Pain: Denies pain. Neuro: Level of ap3 Consciousness is awake, alert, obeys commands, Oriented to person, place, time, situation, Appropriate for age Gait is steady, Speech is normal. Cardiovascular: Patient's skin is warm and dry. Respiratory: Airway is patent Respiratory effort is even, unlabored. Historical: - Allergies: 17:52 No Known Allergies; ap3 - Home Meds: 17:52 multiple unknown medications [Active]; ap3 - PMHx: 17:52 Anxiety; Bipolar disorder; CVA; Hypertension; Schizophrenia; ap3 - Immunization history:: Client reports having NOT received the Covid vaccine. - Social history:: Smoking status: Patient reports the use of cigarette tobacco products, smokes one-half pack cigarettes per day, Patient uses alcohol. Screenin:53 Abuse screen: Denies threats or abuse. Nutritional screening: No deficits noted. ap3 Tuberculosis screening: No symptoms or risk factors identified. Fall Risk. Vital Signs: 17:47 BP 136 / 94; Pulse 86; Resp 18; Temp 98.8; Pulse Ox 98% ; Weight 71.21 kg; Height 5 ft. ap3 5 in. (165.10 cm); 17:47 Body Mass Index 26.13 (71.21 kg, 165.10 cm) ap3 ED Course: 17:25 Patient arrived in ED. mr 17:25 Narda Alexander MD is Private Physician. mr 17:30 [facility]. pm1 17:30 Warren Yañez MD is Attending Physician. pm1 17:52 Triage completed. ap3 17:53 Arm band placed on left wrist. ap3 18:09 Jeff Briceno MD is Referral Physician. pm1 20:06 No provider procedures requiring assistance completed. Patient did not have IV access vc1 during this emergency room visit. Administered Medications: 19:28 Drug: Ativan (LORazepam) 2 mg Route: PO; ld1 20:07 Follow up: Response: No adverse reaction vc1 Medication: 20:06 VIS not applicable for this client. vc1 Outcome: 18:09 Discharge ordered by . pm1 20:06 Discharged to home ambulatory. vc1 20:06 Condition: good 20:06 Discharge instructions given to patient, Instructed on discharge instructions, follow up and referral plans. Demonstrated understanding of instructions, follow-up care. 20:07 Patient left the ED. vc1 Signatures: RobinsJessika dowling Jie Lamrick, SUSAN [employer]BE[employer] TEXTILE SUPERVISOR pm1 Marianna Siegel RN RN ap3 Selam Adair RN RN ld1 Bonny Chase RN RN vc1
[2022-03-20] MEDS ORDERED: LORAZEPAM 1 MG TABLET ONE ×2 (19:32→20:04)
[2022-03-20 20:12] VITALS: BP 136/94; TEMP 98.8; O2SAT 98
== END 2022-03-20 20:07 | disposition home or self-care (01) ==
LOC: ER 17:22
DX: F43.0 Acute stress reaction (principal); F20.9 Schizophrenia, unspecified; F17.210 Nicotine dependence, cigarettes, uncomplicated; I10 Essential (primary) hypertension
CPT/HCPCS: 99283

== ENCOUNTER 2023-05-30 14:48 | Observation (INO) | payer OTHER ==
--- OUTSIDE RECORDS SUMMARY | 2023-05-30 14:54 | XMS REPORT | Continuity of Care Document ---
:1975 Author Organization [facility] t Address [address] [facility] [address] [place] [address] Care Team Providers Name Role Phone Frederick Arenas Attending Clinician Unavailable Francesca Day Attending Clinician Unavailable Narda Alexander Attending Clinician Unavailable Payers Payer Name Policy Type Policy Number Effective Date Expiration Date S chris MEDICAID MC [id number] 2013 [facility] [facility] MEDICARE MB [id number] [facility] [facility] MEDICAID MC [id number] 2013 [facility] [facility] MEDICARE MB [id number] [facility] [place] [facility] MEDICARE MB [id number] [facility] [place] - [facility] MEDICAID MC [id number] 2013 [facility] MEDICARE MB [id number] [facility] [place] [facility] MEDICAID MC [id number] 2013 [facility] MEDICAID MC [id number] [facility] MEDICARE MB [id number] [facility] Problems Condition Condition Condition Status Onset Resolution Last Treating Co mments Source Name Details Category Date Date Treatment Clinician Date [id number] Mixed Problem Common hyperlipid Spirit emia - [facility] [id number] Current Problem Common smoker [facility] Ulcer Ulcer Problem Common [facility] Memory Memory Problem Common problem problem [facility] Bipolar Bipolar Problem Common disorder disorder [facility] [id number] Bipolar I, Problem Com mon single [facility] manic - 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 Social History Social Habit Start Date Stop Date Quantity Comments Source History of Tobacco Current Smoker Co mmon [facility] Use [facility] Sex Assigned At Com mon [facility] - [facility] Smoking Status Start Date Stop Date Source Current Smoker 2022-07-26 00:00:00 [facility] Former Smoker 2021-06-27 00:00:00 2021-06-27 00:00:00 [facility] Medications Ordered Filled Start Stop Current Ordering Indication Dosage Frequency Signature Comments Components Source Medication Medication Date Date Medication? Clinician (SIG) Name Name Atorvastati Atorvastati No 1{table QD Atorvastat n Calcium n Calcium 8-05 t} in Calcium 20 MG 20 MG 00:00: 20 MG 00 Atorvastati Atorvastati No 1{table QD Atorvastat n Calcium n Calcium 8-05 t} in Calcium 20 MG 20 MG 00:00: 20 MG 00 Atorvastati Atorvastati No 1{table QD Atorvastat n Calcium n Calcium 8-05 t} in Calcium 20 MG 20 MG 00:00: 20 MG 00 traMADol traMADol 2020-0 2020- No 1{table traMADol HCl 50 MG HCl 50 MG 04-06 t} HCl 50 MG 00:00: 00:00 00 :00 Ipratropium Ipratropium 2020-0 2020- No Na Alexander 2 sprays [facility] [place] 11-19 in each Spiri t 00:00: 00:00 nostril - [facility] 00 :00 [facility] Thorazine Thorazine Yes Na Alexander not Co mmon defined [facility] HydrOXYzine HydrOXYzine Yes Na Alexander 1 tablet Common HCl HCl as needed [facility] Ziprasidone Ziprasidone Yes Na Alexander 1 capsule Common HCl HCl with food [facility] Sulfasalazi Sulfasalazi Yes Na Alexander 1 tablet Common ne ne [facility] Ziprasidone Ziprasidone Yes Na Alexander 1 capsule Common HCl HCl with food [facility] Divalproex Divalproex Yes Na Alexander 1 tablet Common Sodium Sodium [facility] Clonazepam Clonazepam Yes Na Alexander 1 tablet [facility] Pentasa Pentasa Yes Na Alexander 2 capsules [facility] Aspir-81 Aspir-81 Yes Na Alexander 1 tablet [facility] Coumadin Coumadin Yes Na Alexander 1 tablet [facility] baclofen baclofen Yes Na Alexander 1/2 tab C ommon [facility] Atenolol Atenolol Yes Na Alexander 1 tablet [facility] Warfarin Warfarin Yes Na Alexander 1 tablet [facility] Sodium Sodium [facility] PredniSONE PredniSONE Yes Na Alexander 1 tablet [facility] Ziprasidone Ziprasidone No 1{capsu BID Ziprasidon HCl 60 MG HCl 60 MG le_with e HCl 60 _food} MG Coumadin 3 Coumadin 3 No 1{table Coumadin 3 MG MG t} MG Warfarin Warfarin No Warfarin Sodium 3 MG Sodium 3 MG Sodium 3 MG Pentasa 500 Pentasa 500 No 2{capsu QID Pentasa MG MG les} 500 MG OLANZapine OLANZapine No 1{table QD OLANZapine 10 MG 10 MG t} 10 MG Ziprasidone Ziprasidone No 1{capsu BID Ziprasidon HCl 40 MG HCl 40 MG le_with e HCl 40 _food} MG Omeprazole Omeprazole No 1{capsu BID Omeprazole 20 MG 20 MG le} 20 MG Aspir-81 81 Aspir-81 81 No 1{table QD Aspir-81 MG MG t} 81 MG clonazePAM clonazePAM No 1{table QD clonazePAM 1 MG 1 MG t} 1 MG Warfarin Warfarin No QD Warfarin Sodium 4 MG Sodium 4 MG Sodium 4 MG hydrOXYzine hydrOXYzine No 1{table TID hydrOXYzin HCl 25 MG HCl 25 MG t_as_ne e HCl 25 eded} MG sulfaSALAzi sulfaSALAzi No 1{table QD sulfaSALAz ne 500 MG ne 500 MG t} ine 500 MG Warfarin Warfarin No Warfarin Sodium 2.5 Sodium 2.5 Sodium 2.5 MG MG MG clonazePAM clonazePAM No 1{table QD clonazePAM 1 MG 1 MG t} 1 MG Warfarin Warfarin No Warfarin Sodium 3 MG Sodium 3 MG Sodium 3 MG Coumadin 3 Coumadin 3 No 1{table Coumadin 3 MG MG t} MG Omeprazole Omeprazole No 1{capsu BID Omeprazole 20 MG 20 MG le} 20 MG Warfarin Warfarin No QD Warfarin Sodium 4 MG Sodium 4 MG Sodium 4 MG Aspir-81 81 Aspir-81 81 No 1{table QD Aspir-81 MG MG t} 81 MG Ziprasidone Ziprasidone No 1{capsu BID Ziprasidon HCl 60 MG HCl 60 MG le_with e HCl 60 _food} MG OLANZapine OLANZapine No 1{table QD OLANZapine 10 MG 10 MG t} 10 MG Thorazine Thorazine No Thorazine baclofen baclofen No TID baclofen 10mg 10mg 10mg Ziprasidone Ziprasidone No 1{capsu BID Ziprasidon HCl 40 MG HCl 40 MG le_with e HCl 40 _food} MG Atenolol 50 Atenolol 50 No 1{table QD Atenolol MG MG t} 50 MG Pentasa 500 Pentasa 500 No 2{capsu QID Pentasa MG MG les} 500 MG hydrOXYzine hydrOXYzine No 1{table TID hydrOXYzin HCl 25 MG HCl 25 MG t_as_ne e HCl 25 eded} MG sulfaSALAzi sulfaSALAzi No 1{table QD sulfaSALAz ne 500 MG ne 500 MG t} ine 500 MG Thorazine Thorazine No Thorazine clonazePAM clonazePAM No 1{table QD clonazePAM 1 MG 1 MG t} 1 MG Coumadin 3 Coumadin 3 No 1{table Coumadin 3 MG MG t} MG Atenolol 50 Atenolol 50 No 1{table QD Atenolol MG MG t} 50 MG Pentasa 500 Pentasa 500 No 2{capsu QID Pentasa MG MG les} 500 MG Aspir-81 81 Aspir-81 81 No 1{table QD Aspir-81 MG MG t} 81 MG Warfarin Warfarin No Warfarin Sodium 2.5 Sodium 2.5 Sodium 2.5 MG MG MG Omeprazole Omeprazole No 1{capsu BID Omeprazole 20 MG 20 MG le} 20 MG baclofen baclofen No TID baclofen 10mg 10mg 10mg Ziprasidone Ziprasidone No 1{capsu BID Ziprasidon HCl 60 MG HCl 60 MG le_with e HCl 60 _food} MG Warfarin Warfarin No QD Warfarin Sodium 4 MG Sodium 4 MG Sodium 4 MG Ziprasidone Ziprasidone No 1{capsu BID Ziprasidon HCl 40 MG HCl 40 MG le_with e HCl 40 _food} MG Warfarin Warfarin No Warfarin Sodium 3 MG Sodium 3 MG Sodium 3 MG OLANZapine OLANZapine No 1{table QD OLANZapine 10 MG 10 MG t} 10 MG baclofen baclofen No TID baclofen 10mg 10mg 10mg OLANZapine OLANZapine No 1{table QD OLANZapine 10 MG 10 MG t} 10 MG Warfarin Warfarin No Warfarin Sodium 2.5 Sodium 2.5 Sodium 2.5 MG MG MG clonazePAM clonazePAM No 1{table QD clonazePAM 1 MG 1 MG t} 1 MG Ziprasidone Ziprasidone No 1{capsu BID Ziprasidon HCl 40 MG HCl 40 MG le_with e HCl 40 _food} MG Coumadin 3 Coumadin 3 No 1{table Coumadin 3 MG MG t} MG Warfarin Warfarin No QD Warfarin Sodium 4 MG Sodium 4 MG Sodium 4 MG Atenolol 50 Atenolol 50 No 1{table QD Atenolol MG MG t} 50 MG hydrOXYzine hydrOXYzine No 1{table TID hydrOXYzin HCl 25 MG HCl 25 MG t_as_ne e HCl 25 eded} MG Pentasa 500 Pentasa 500 No 2{capsu QID Pentasa MG MG les} 500 MG Ziprasidone Ziprasidone No 1{capsu BID Ziprasidon HCl 60 MG HCl 60 MG le_with e HCl 60 _food} MG Thorazine Thorazine No Thorazine Warfarin Warfarin No Warfarin Sodium 3 MG Sodium 3 MG Sodium 3 MG Omeprazole Omeprazole No 1{capsu BID Omeprazole 20 MG 20 MG le} 20 MG sulfaSALAzi sulfaSALAzi No 1{table QD sulfaSALAz ne 500 MG ne 500 MG t} ine 500 MG Aspir-81 81 Aspir-81 81 No 1{table QD Aspir-81 MG MG t} 81 MG Warfarin Warfarin No Warfarin Sodium 4 MG Sodium 4 MG Sodium 4 MG baclofen baclofen No TID baclofen 10mg 10mg 10mg Ziprasidone Ziprasidone No 1{capsu BID Ziprasidon HCl 60 MG HCl 60 MG le_with e HCl 60 _food} MG Pentasa 500 Pentasa 500 No 2{capsu QID Pentasa MG MG les} 500 MG Atenolol 50 Atenolol 50 No 1.5{tab QD Atenolol MG MG let} 50 MG Aspir-81 81 Aspir-81 81 No 1{table QD Aspir-81 MG MG t} 81 MG Warfarin Warfarin No Warfarin Sodium 2.5 Sodium 2.5 Sodium 2.5 MG MG MG sulfaSALAzi sulfaSALAzi No 1{table QD sulfaSALAz ne 500 MG ne 500 MG t} ine 500 MG Omeprazole Omeprazole No 1{capsu BID Omeprazole 20 MG 20 MG le} 20 MG Warfarin Warfarin No Warfarin Sodium 3 MG Sodium 3 MG Sodium 3 MG Atenolol 50 Atenolol 50 No Atenolol MG MG 50 MG Thorazine Thorazine No Thorazine Omeprazole Omeprazole No Omeprazole 20 MG 20 MG 20 MG Atorvastati Atorvastati No Atorvastat n Calcium n Calcium in Calcium 20 MG 20 MG 20 MG OLANZapine OLANZapine No 1{table QD OLANZapine 10 MG 10 MG t} 10 MG hydrOXYzine hydrOXYzine No 1{table TID hydrOXYzin HCl 25 MG HCl 25 MG t_as_ne e HCl 25 eded} MG Ziprasidone Ziprasidone No 1{capsu BID Ziprasidon HCl 40 MG HCl 40 MG le_with e HCl 40 _food} MG clonazePAM clonazePAM No 1{table QD clonazePAM 1 MG 1 MG t} 1 MG Coumadin 3 Coumadin 3 No 1{table Coumadin 3 MG MG t} MG Atorvastati Atorvastati No 1{table QD Atorvastat n Calcium n Calcium t} in Calcium 20 MG 20 MG 20 MG Warfarin Warfarin No Warfarin Sodium 4 MG Sodium 4 MG Sodium 4 MG baclofen baclofen No TID baclofen 10mg 10mg 10mg Ziprasidone Ziprasidone No 1{capsu BID Ziprasidon HCl 60 MG HCl 60 MG le_with e HCl 60 _food} MG Pentasa 500 Pentasa 500 No 2{capsu QID Pentasa MG MG les} 500 MG Atenolol 50 Atenolol 50 No 1.5{tab QD Atenolol MG MG let} 50 MG Aspir-81 81 Aspir-81 81 No 1{table QD Aspir-81 MG MG t} 81 MG Warfarin Warfarin No Warfarin Sodium 2.5 Sodium 2.5 Sodium 2.5 MG MG MG sulfaSALAzi sulfaSALAzi No 1{table QD sulfaSALAz ne 500 MG ne 500 MG t} ine 500 MG Omeprazole Omeprazole No 1{capsu BID Omeprazole 20 MG 20 MG le} 20 MG Warfarin Warfarin No Warfarin Sodium 3 MG Sodium 3 MG Sodium 3 MG Atenolol 50 Atenolol 50 No Atenolol MG MG 50 MG Thorazine Thorazine No Thorazine Omeprazole Omeprazole No Omeprazole 20 MG 20 MG 20 MG Atorvastati Atorvastati No Atorvastat n Calcium n Calcium in Calcium 20 MG 20 MG 20 MG OLANZapine OLANZapine No 1{table QD OLANZapine 10 MG 10 MG t} 10 MG hydrOXYzine hydrOXYzine No 1{table TID hydrOXYzin HCl 25 MG HCl 25 MG t_as_ne e HCl 25 eded} MG Ziprasidone Ziprasidone No 1{capsu BID Ziprasidon HCl 40 MG HCl 40 MG le_with e HCl 40 _food} MG clonazePAM clonazePAM No 1{table QD clonazePAM 1 MG 1 MG t} 1 MG Coumadin 3 Coumadin 3 No 1{table Coumadin 3 MG MG t} MG Atorvastati Atorvastati No 1{table QD Atorvastat n Calcium n Calcium t} in Calcium 20 MG 20 MG 20 MG Atenolol 50 Atenolol 50 No 1.5{tab QD Atenolol MG MG let} 50 MG Warfarin Warfarin No Warfarin Sodium 4 MG Sodium 4 MG Sodium 4 MG Warfarin Warfarin No Warfarin Sodium 2.5 Sodium 2.5 Sodium 2.5 MG MG MG Thorazine Thorazine No Thorazine Ziprasidone Ziprasidone No 1{capsu BID Ziprasidon HCl 60 MG HCl 60 MG le_with e HCl 60 _food} MG Aspir-81 81 Aspir-81 81 No 1{table QD Aspir-81 MG MG t} 81 MG Ziprasidone Ziprasidone No 1{capsu BID Ziprasidon HCl 40 MG HCl 40 MG le_with e HCl 40 _food} MG sulfaSALAzi sulfaSALAzi No 1{table QD sulfaSALAz ne 500 MG ne 500 MG t} ine 500 MG Omeprazole Omeprazole No Omeprazole 20 MG 20 MG 20 MG Warfarin Warfarin No Warfarin Sodium 3 MG Sodium 3 MG Sodium 3 MG hydrOXYzine hydrOXYzine No 1{table TID hydrOXYzin HCl 25 MG HCl 25 MG t_as_ne e HCl 25 eded} MG Atenolol 50 Atenolol 50 No Atenolol MG MG 50 MG Coumadin 3 Coumadin 3 No 1{table Coumadin 3 MG MG t} MG Atorvastati Atorvastati No 1{table QD Atorvastat n Calcium n Calcium t} in Calcium 20 MG 20 MG 20 MG Pentasa 500 Pentasa 500 No 2{capsu QID Pentasa MG MG les} 500 MG Atorvastati Atorvastati No Atorvastat n Calcium n Calcium in Calcium 20 MG 20 MG 20 MG clonazePAM clonazePAM No 1{table QD clonazePAM 1 MG 1 MG t} 1 MG OLANZapine OLANZapine No 1{table QD OLANZapine 10 MG 10 MG t} 10 MG baclofen baclofen No TID baclofen 10mg 10mg 10mg Pentasa 500 Pentasa 500 No 2{capsu QID Pentasa MG MG les} 500 MG Warfarin Warfarin No Warfarin Sodium 4 MG Sodium 4 MG Sodium 4 MG Atenolol 50 Atenolol 50 No Atenolol MG MG 50 MG Warfarin Warfarin No Warfarin Sodium 2.5 Sodium 2.5 Sodium 2.5 MG MG MG Aspir-81 81 Aspir-81 81 No 1{table QD Aspir-81 MG MG t} 81 MG clonazePAM clonazePAM No 1{table QD clonazePAM 1 MG 1 MG t} 1 MG baclofen baclofen No TID baclofen 10mg 10mg 10mg Thorazine Thorazine No Thorazine hydrOXYzine hydrOXYzine No 1{table TID hydrOXYzin HCl 25 MG HCl 25 MG t_as_ne e HCl 25 eded} MG Warfarin Warfarin No Warfarin Sodium 3 MG Sodium 3 MG Sodium 3 MG Coumadin 3 Coumadin 3 No 1{table Coumadin 3 MG MG t} MG Omeprazole Omeprazole No 1{capsu BID Omeprazole 20 MG 20 MG le} 20 MG sulfaSALAzi sulfaSALAzi No 1{table QD sulfaSALAz ne 500 MG ne 500 MG t} ine 500 MG Atorvastati Atorvastati No 1{table QD Atorvastat n Calcium n Calcium t} in Calcium 20 MG 20 MG 20 MG Ziprasidone Ziprasidone No 1{capsu BID Ziprasidon HCl 40 MG HCl 40 MG le_with e HCl 40 _food} MG OLANZapine OLANZapine No 1{table QD OLANZapine 10 MG 10 MG t} 10 MG Atorvastati Atorvastati No Atorvastat n Calcium n Calcium in Calcium 20 MG 20 MG 20 MG Ziprasidone Ziprasidone No 1{capsu BID Ziprasidon HCl 60 MG HCl 60 MG le_with e HCl 60 _food} MG Omeprazole Omeprazole No Omeprazole 20 MG 20 MG 20 MG Atenolol 50 Atenolol 50 No 1.5{tab QD Atenolol MG MG let} 50 MG Pentasa 500 Pentasa 500 No 2{capsu QID Pentasa MG MG les} 500 MG Warfarin Warfarin No Warfarin Sodium 4 MG Sodium 4 MG Sodium 4 MG Atenolol 50 Atenolol 50 No Atenolol MG MG 50 MG Warfarin Warfarin No Warfarin Sodium 2.5 Sodium 2.5 Sodium 2.5 MG MG MG Aspir-81 81 Aspir-81 81 No 1{table QD Aspir-81 MG MG t} 81 MG clonazePAM clonazePAM No 1{table QD clonazePAM 1 MG 1 MG t} 1 MG baclofen baclofen No TID baclofen 10mg 10mg 10mg Thorazine Thorazine No Thorazine hydrOXYzine hydrOXYzine No 1{table TID hydrOXYzin HCl 25 MG HCl 25 MG t_as_ne e HCl 25 eded} MG Warfarin Warfarin No Warfarin Sodium 3 MG Sodium 3 MG Sodium 3 MG Coumadin 3 Coumadin 3 No 1{table Coumadin 3 MG MG t} MG Omeprazole Omeprazole No 1{capsu BID Omeprazole 20 MG 20 MG le} 20 MG sulfaSALAzi sulfaSALAzi No 1{table QD sulfaSALAz ne 500 MG ne 500 MG t} ine 500 MG Atorvastati Atorvastati No 1{table QD Atorvastat n Calcium n Calcium t} in Calcium 20 MG 20 MG 20 MG Ziprasidone Ziprasidone No 1{capsu BID Ziprasidon HCl 40 MG HCl 40 MG le_with e HCl 40 _food} MG OLANZapine OLANZapine No 1{table QD OLANZapine 10 MG 10 MG t} 10 MG Atorvastati Atorvastati No Atorvastat n Calcium n Calcium in Calcium 20 MG 20 MG 20 MG Ziprasidone Ziprasidone No 1{capsu BID Ziprasidon HCl 60 MG HCl 60 MG le_with e HCl 60 _food} MG Omeprazole Omeprazole No Omeprazole 20 MG 20 MG 20 MG Atenolol 50 Atenolol 50 No 1.5{tab QD Atenolol MG MG let} 50 MG Pentasa 500 Pentasa 500 No 2{capsu QID Pentasa MG MG les} 500 MG Warfarin Warfarin No Warfarin Sodium 4 MG Sodium 4 MG Sodium 4 MG Atenolol 50 Atenolol 50 No Atenolol MG MG 50 MG Warfarin Warfarin No Warfarin Sodium 2.5 Sodium 2.5 Sodium 2.5 MG MG MG Aspir-81 81 Aspir-81 81 No 1{table QD Aspir-81 MG MG t} 81 MG clonazePAM clonazePAM No 1{table QD clonazePAM 1 MG 1 MG t} 1 MG baclofen baclofen No TID baclofen 10mg 10mg 10mg Thorazine Thorazine No Thorazine hydrOXYzine hydrOXYzine No 1{table TID hydrOXYzin HCl 25 MG HCl 25 MG t_as_ne e HCl 25 eded} MG Warfarin Warfarin No Warfarin Sodium 3 MG Sodium 3 MG Sodium 3 MG Coumadin 3 Coumadin 3 No 1{table Coumadin 3 MG MG t} MG Omeprazole Omeprazole No 1{capsu BID Omeprazole 20 MG 20 MG le} 20 MG sulfaSALAzi sulfaSALAzi No 1{table QD sulfaSALAz ne 500 MG ne 500 MG t} ine 500 MG Atorvastati Atorvastati No 1{table QD Atorvastat n Calcium n Calcium t} in Calcium 20 MG 20 MG 20 MG Ziprasidone Ziprasidone No 1{capsu BID Ziprasidon HCl 40 MG HCl 40 MG le_with e HCl 40 _food} MG OLANZapine OLANZapine No 1{table QD OLANZapine 10 MG 10 MG t} 10 MG Atorvastati Atorvastati No Atorvastat n Calcium n Calcium in Calcium 20 MG 20 MG 20 MG Ziprasidone Ziprasidone No 1{capsu BID Ziprasidon HCl 60 MG HCl 60 MG le_with e HCl 60 _food} MG Omeprazole Omeprazole No Omeprazole 20 MG 20 MG 20 MG Atenolol 50 Atenolol 50 No 1.5{tab QD Atenolol MG MG let} 50 MG Warfarin Warfarin No Warfarin Sodium 2.5 Sodium 2.5 Sodium 2.5 MG MG MG Atorvastati Atorvastati No Atorvastat n Calcium n Calcium in Calcium 20 MG 20 MG 20 MG Omeprazole Omeprazole No Omeprazole 20 MG 20 MG 20 MG OLANZapine OLANZapine No 1{table QD OLANZapine 10 MG 10 MG t} 10 MG Warfarin Warfarin No Warfarin Sodium 3 MG Sodium 3 MG Sodium 3 MG sulfaSALAzi sulfaSALAzi No 1{table QD sulfaSALAz ne 500 MG ne 500 MG t} ine 500 MG hydrOXYzine hydrOXYzine No 1{table TID hydrOXYzin HCl 25 MG HCl 25 MG t_as_ne e HCl 25 eded} MG clonazePAM clonazePAM No 1{table QD clonazePAM 1 MG 1 MG t} 1 MG Thorazine Thorazine No Thorazine Atorvastati Atorvastati No 1{table QD Atorvastat n Calcium n Calcium t} in Calcium 20 MG 20 MG 20 MG Atenolol 50 Atenolol 50 No Atenolol MG MG 50 MG Ziprasidone Ziprasidone No 1{capsu BID Ziprasidon HCl 40 MG HCl 40 MG le_with e HCl 40 _food} MG Aspir-81 81 Aspir-81 81 No 1{table QD Aspir-81 MG MG t} 81 MG Warfarin Warfarin No Warfarin Sodium 4 MG Sodium 4 MG Sodium 4 MG Pentasa 500 Pentasa 500 No 2{capsu QID Pentasa MG MG les} 500 MG Ziprasidone Ziprasidone No 1{capsu BID Ziprasidon HCl 60 MG HCl 60 MG le_with e HCl 60 _food} MG Coumadin 3 Coumadin 3 No 1{table Coumadin 3 MG MG t} MG baclofen baclofen No TID baclofen 10mg 10mg 10mg Pentasa 500 Pentasa 500 No 2{capsu QID Pentasa MG MG les} 500 MG baclofen baclofen No TID baclofen 10mg 10mg 10mg Coumadin 3 Coumadin 3 No 1{table Coumadin 3 MG MG t} MG Omeprazole Omeprazole No Omeprazole 20 MG 20 MG 20 MG OLANZapine OLANZapine No 1{table QD OLANZapine 10 MG 10 MG t} 10 MG Atenolol 50 Atenolol 50 No Atenolol MG MG 50 MG Warfarin Warfarin No Warfarin Sodium 3 MG Sodium 3 MG Sodium 3 MG Thorazine Thorazine No Thorazine hydrOXYzine hydrOXYzine No 1{table TID hydrOXYzin HCl 25 MG HCl 25 MG t_as_ne e HCl 25 eded} MG Atorvastati Atorvastati No 1{table QD Atorvastat n Calcium n Calcium t} in Calcium 20 MG 20 MG 20 MG Aspir-81 81 Aspir-81 81 No 1{table QD Aspir-81 MG MG t} 81 MG sulfaSALAzi sulfaSALAzi No 1{table QD sulfaSALAz ne 500 MG ne 500 MG t} ine 500 MG Ziprasidone Ziprasidone No 1{capsu BID Ziprasidon HCl 60 MG HCl 60 MG le_with e HCl 60 _food} MG clonazePAM clonazePAM No 1{table QD clonazePAM 1 MG 1 MG t} 1 MG Atorvastati Atorvastati No Atorvastat n Calcium n Calcium in Calcium 20 MG 20 MG 20 MG Ziprasidone Ziprasidone No 1{capsu BID Ziprasidon HCl 40 MG HCl 40 MG le_with e HCl 40 _food} MG Warfarin Warfarin No Warfarin Sodium 2.5 Sodium 2.5 Sodium 2.5 MG MG MG Warfarin Warfarin No Warfarin Sodium 4 MG Sodium 4 MG Sodium 4 MG Pentasa 500 Pentasa 500 No 2{capsu QID Pentasa MG MG les} 500 MG baclofen baclofen No TID baclofen 10mg 10mg 10mg Coumadin 3 Coumadin 3 No 1{table Coumadin 3 MG MG t} MG Omeprazole Omeprazole No Omeprazole 20 MG 20 MG 20 MG OLANZapine OLANZapine No 1{table QD OLANZapine 10 MG 10 MG t} 10 MG Atenolol 50 Atenolol 50 No Atenolol MG MG 50 MG Warfarin Warfarin No Warfarin Sodium 3 MG Sodium 3 MG Sodium 3 MG Thorazine Thorazine No Thorazine hydrOXYzine hydrOXYzine No 1{table TID hydrOXYzin HCl 25 MG HCl 25 MG t_as_ne e HCl 25 eded} MG Atorvastati Atorvastati No 1{table QD Atorvastat n Calcium n Calcium t} in Calcium 20 MG 20 MG 20 MG Aspir-81 81 Aspir-81 81 No 1{table QD Aspir-81 MG MG t} 81 MG sulfaSALAzi sulfaSALAzi No 1{table QD sulfaSALAz ne 500 MG ne 500 MG t} ine 500 MG Ziprasidone Ziprasidone No 1{capsu BID Ziprasidon HCl 60 MG HCl 60 MG le_with e HCl 60 _food} MG clonazePAM clonazePAM No 1{table QD clonazePAM 1 MG 1 MG t} 1 MG Atorvastati Atorvastati No Atorvastat n Calcium n Calcium in Calcium 20 MG 20 MG 20 MG Ziprasidone Ziprasidone No 1{capsu BID Ziprasidon HCl 40 MG HCl 40 MG le_with e HCl 40 _food} MG Warfarin Warfarin No Warfarin Sodium 2.5 Sodium 2.5 Sodium 2.5 MG MG MG Warfarin Warfarin No Warfarin Sodium 4 MG Sodium 4 MG Sodium 4 MG Pentasa 500 Pentasa 500 No 2{capsu QID Pentasa MG MG les} 500 MG baclofen baclofen No TID baclofen 10mg 10mg 10mg Coumadin 3 Coumadin 3 No 1{table Coumadin 3 MG MG t} MG Omeprazole Omeprazole No Omeprazole 20 MG 20 MG 20 MG OLANZapine OLANZapine No 1{table QD OLANZapine 10 MG 10 MG t} 10 MG Atenolol 50 Atenolol 50 No Atenolol MG MG 50 MG Warfarin Warfarin No Warfarin Sodium 3 MG Sodium 3 MG Sodium 3 MG Thorazine Thorazine No Thorazine hydrOXYzine hydrOXYzine No 1{table TID hydrOXYzin HCl 25 MG HCl 25 MG t_as_ne e HCl 25 eded} MG Atorvastati Atorvastati No 1{table QD Atorvastat n Calcium n Calcium t} in Calcium 20 MG 20 MG 20 MG Aspir-81 81 Aspir-81 81 No 1{table QD Aspir-81 MG MG t} 81 MG sulfaSALAzi sulfaSALAzi No 1{table QD sulfaSALAz ne 500 MG ne 500 MG t} ine 500 MG Ziprasidone Ziprasidone No 1{capsu BID Ziprasidon HCl 60 MG HCl 60 MG le_with e HCl 60 _food} MG clonazePAM clonazePAM No 1{table QD clonazePAM 1 MG 1 MG t} 1 MG Atorvastati Atorvastati No Atorvastat n Calcium n Calcium in Calcium 20 MG 20 MG 20 MG Ziprasidone Ziprasidone No 1{capsu BID Ziprasidon HCl 40 MG HCl 40 MG le_with e HCl 40 _food} MG Warfarin Warfarin No Warfarin Sodium 2.5 Sodium 2.5 Sodium 2.5 MG MG MG Warfarin Warfarin No Warfarin Sodium 4 MG Sodium 4 MG Sodium 4 MG Atenolol 50 Atenolol 50 No 1{table QD Atenolol MG MG t} 50 MG sulfaSALAzi sulfaSALAzi No 1{table QD sulfaSALAz ne 500 MG ne 500 MG t} ine 500 MG Warfarin Warfarin No Warfarin Sodium 2.5 Sodium 2.5 Sodium 2.5 MG MG MG Thorazine Thorazine No Thorazine baclofen baclofen No TID baclofen 10mg 10mg 10mg hydrOXYzine hydrOXYzine No 1{table TID hydrOXYzin HCl 25 MG HCl 25 MG t_as_ne e HCl 25 eded} MG Ziprasidone Ziprasidone No 1{capsu BID Ziprasidon HCl 60 MG HCl 60 MG le_with e HCl 60 _food} MG Coumadin 3 Coumadin 3 No 1{table Coumadin 3 MG MG t} MG Warfarin Warfarin No Warfarin Sodium 3 MG Sodium 3 MG Sodium 3 MG Pentasa 500 Pentasa 500 No 2{capsu QID Pentasa MG MG les} 500 MG OLANZapine OLANZapine No 1{table QD OLANZapine 10 MG 10 MG t} 10 MG Ziprasidone Ziprasidone No 1{capsu BID Ziprasidon HCl 40 MG HCl 40 MG le_with e HCl 40 _food} MG Omeprazole Omeprazole No 1{capsu BID Omeprazole 20 MG 20 MG le} 20 MG Aspir-81 81 Aspir-81 81 No 1{table QD Aspir-81 MG MG t} 81 MG clonazePAM clonazePAM No 1{table QD clonazePAM 1 MG 1 MG t} 1 MG Warfarin Warfarin No QD Warfarin Sodium 4 MG Sodium 4 MG Sodium 4 MG Warfarin Warfarin No Warfarin Sodium 2.5 Sodium 2.5 Sodium 2.5 MG MG MG Atenolol 50 Atenolol 50 No 1{table QD Atenolol MG MG t} 50 MG sulfaSALAzi sulfaSALAzi No 1{table QD sulfaSALAz ne 500 MG ne 500 MG t} ine 500 MG Thorazine Thorazine No Thorazine baclofen baclofen No TID baclofen 10mg 10mg 10mg hydrOXYzine hydrOXYzine No 1{table TID hydrOXYzin HCl 25 MG HCl 25 MG t_as_ne e HCl 25 eded} MG Vital Signs Vital Name Observation Time Observation Value Comments Source height 2022-07-26 11:00:00 67.00 [in_i] [facility] weight 2022-07-26 11:00:00 151.6 [lb_av] [facility] temperature 2022-07-26 11:00:00 98.4 [degF] [facility] bmi 2022-07-26 11:00:00 23.74 kg/m2 [facility] oximetry 2022-07-26 11:00:00 96 % [facility] respiratory rate 2022-07-26 11:00:00 16 /min Comm on [facility] blood pressure 2022-07-26 11:00:00 131 mm[Hg] [facility] systolic [facility] blood pressure 2022-07-26 11:00:00 88 mm[Hg] [facility] - diastolic [facility] height 2022-07-26 10:40:00 67.00 [in_i] [facility] weight 2022-07-26 10:40:00 151.6 [lb_av] [facility] temperature 2022-07-26 10:40:00 98.4 [degF] [facility] bmi 2022-07-26 10:40:00 23.74 kg/m2 [facility] oximetry 2022-07-26 10:40:00 96 % [facility] respiratory rate 2022-07-26 10:40:00 16 /min Comm on [facility] blood pressure 2022-07-26 10:40:00 131 mm[Hg] Common [facility] - systolic [facility] blood pressure 2022-07-26 10:40:00 88 mm[Hg] Common [facility] - diastolic [facility] height 2021-12-07 14:40:00 67.00 [in_i] Common [facility] weight 2021-12-07 14:40:00 164.6 [lb_av] Common [facility] temperature 2021-12-07 14:40:00 97.1 [degF] Common [facility] bmi 2021-12-07 14:40:00 25.78 kg/m2 [facility] oximetry 2021-12-07 14:40:00 99 % [facility] respiratory rate 2021-12-07 14:40:00 18 /min Comm on [facility] blood pressure 2021-12-07 14:40:00 128 mm[Hg] Common [facility] - systolic [facility] blood pressure 2021-12-07 14:40:00 84 mm[Hg] Common [facility] - diastolic [facility] height 2021-06-09 14:00:00 67.00 [in_i] [facility] weight 2021-06-09 14:00:00 150.0 [lb_av] [facility] bmi 2021-06-09 14:00:00 23.49 kg/m2 [facility] [facility] height 2021-05-10 12:40:00 67.00 [in_i] Common [facility] weight 2021-05-10 12:40:00 140 [lb_av] [facility] bmi 2021-05-10 12:40:00 21.92 kg/m2 [facility] height 2021-04-06 10:00:00 67.00 [in_i] [facility] [place] [facility] weight 2021-04-06 10:00:00 167.4 [lb_av] Common [facility] temperature 2021-04-06 10:00:00 97.2 [degF] [facility] bmi 2021-04-06 10:00:00 26.22 kg/m2 [facility] oximetry 2021-04-06 10:00:00 96 % Common [facility] respiratory rate 2021-04-06 10:00:00 16 /min Comm on [facility] blood pressure 2021-04-06 10:00:00 126 mm[Hg] Common [facility] systolic [facility] blood pressure 2021-04-06 10:00:00 80 mm[Hg] Common [facility] diastolic [facility] Procedures This patient has no known procedures. Encounters Start End Encounter Admission Attending Care Care Encounter Source Date/Time Date/Time Type Type Clinicians Facility Department ID 2023-05-06 Outpatient Arenas, STLMLC STLMLC [id number] Common 10:01:00 [facility] [id number] [facility] 2023-04-03 Outpatient STLMLC STLMLC [id number] Common 10:27:00 [id number] [facility] 2023-02-04 Outpatient Barb, STLMLC STLMLC [id number] Common 15:06:01 Francesca [id number] [facility] 2022-12-06 Outpatient Barb, STLMLC STLMLC [id number] Common 13:35:01 Francesca [id number] [facility] 2022-07-26 Outpatient Alexander, Na STLMLC STLMLC [id number] 2 Common 13:21:01 [facility] 2022-03-09 Outpatient Alexander, Na STLMLC STLMLC [id number] 2 Common 16:40:01 [facility] 2022-03-07 Outpatient Alexander, Na STLMLC STLMLC [id number] 2 Common 09:38:00 [facility] 2021-12-26 Outpatient Alexander, Na STLMLC STLMLC [id number] 2 Common 11:44:02 [facility] 2021-12-21 Outpatient Alexander, Na STLMLC STLMLC [id number] 2 Common 15:23:00 [facility] 2021-12-07 Outpatient Alexander, Na STLMLC STLMLC [id number] 2 Common 16:13:01 [facility] 2021-12-01 Outpatient Alexander, Na STLMLC STLMLC [id number] 2 Common 11:52:01 [facility] 2021-11-01 Outpatient Alexander, Na STLMLC STLMLC [id number] 2 Common 13:45:31 [id number] [facility] 2021-11-01 Outpatient Alexander, Na STLMLC STLMLC [id number] 2 Common 13:33:37 [id number] [facility] 2021-11-01 Outpatient Alexander, Na STLMLC STLMLC [id number] 2 Common 13:22:39 [id number] [facility] 2021-11-01 Outpatient Alexander, Na STLMLC STLMLC [id number] 2 Common 12:51:22 [id number] [facility] 2021-11-01 Outpatient Alexander, Na STLMLC STLMLC [id number] 2 Common 11:56:05 [id number] [facility] 2021-11-01 Outpatient Alexander, Na STLMLC STLMLC [id number] 2 Common 11:55:43 [id number] [facility] 2021-11-01 Outpatient Alexander, Na STLMLC STLMLC [id number] 2 Common 11:19:35 [id number] [facility] 2021-11-01 Outpatient Alexander, Na STLMLC STLMLC [id number] 2 Common 11:17:04 [id number] [facility] 2022-07-27 2022-07-27 (TEL) STLMLC STLMLC [id number] Co mmon 00:00:00 00:00:00 [facility] 2022-07-26 2022-07-26 SUB ANNUAL STLMLC STLMLC [id number] Common 00:00:00 00:00:00 [facility] WELLNESS - CHI VISIT [facility] 2022-07-26 2022-07-26 OFFICE STLMLC STLMLC [id number] Co mmon 00:00:00 00:00:00 VISIT EST Spir it PT LEVEL 3 - CHI [facility] 2022-07-12 2022-07-12 (TEL) STLMLC STLMLC [id number] Co mmon 00:00:00 00:00:00 [facility] 2022-03-21 2022-03-21 (TEL) STLMLC STLMLC [id number] Co mmon 00:00:00 00:00:00 [facility] 2022-03-14 2022-03-14 (TEL) STLMLC STLMLC [id number] Co mmon 00:00:00 00:00:00 [facility] 2022-03-09 2022-03-09 OL DIG E/M STLMLC STLMLC [id number] Common 00:00:00 00:00:00 C -20 Spir it MIN - CHI [facility] 2022-01-12 2022-01-12 (TEL) STLMLC STLMLC [id number] Co mmon 00:00:00 00:00:00 [facility] 2021-12-13 2021-12-13 (TEL) STLMLC STLMLC [id number] Co mmon 00:00:00 00:00:00 [facility] 2021-12-07 2021-12-07 OFFICE STLMLC STLMLC [id number] Co mmon 00:00:00 00:00:00 V[facility]IT Spirit ESTAB PT - CHI LEVEL 4 [facility] 2021-06-09 2021-06-09 SUB ANNUAL STLMLC STLMLC [id number] Common 00:00:00 00:00:00 [facility] WELLNESS - CHI VISIT [facility] 2021-05-11 2021-05-11 (TEL) STLMLC STLMLC [id number] Co mmon 00:00:00 00:00:00 [facility] 2021-05-10 2021-05-10 OFFICE STLMLC STLMLC [id number] Co mmon 00:00:00 00:00:00 VISIT EST Spir it PT LEVEL 3 - [facility] 2021-04-28 2021-04-28 (TEL) STLMLC STLMLC [id number] Co mmon 00:00:00 00:00:00 [facility] 2021-04-06 2021-04-06 OFFICE STLMLC STLMLC [id number] Co mmon 00:00:00 00:00:00 [facility]IT Spirit ESTAB PT - CHI LEVEL 4 [facility] 2021-01-18 2021-01-18 Outpatient STLMLC STLMLC [id number] Common 00:00:00 00:00:00 [facility] 2021-01-11 2021-01-11 Outpatient STLMLC STLMLC [id number] Common 00:00:00 00:00:00 [facility] 2020-11-18 2020-11-18 Outpatient STLMLC STLMLC [id number] Common 00:00:00 00:00:00 [facility] 2020-07-25 2020-07-25 Outpatient STLMLC STLMLC [id number] Common 00:00:00 00:00:00 [facility] 2020-07-11 2020-07-11 Outpatient STLMLC STLMLC [id number] Common 00:00:00 00:00:00 [facility] 2020-07-06 2020-07-06 Outpatient STLMLC STLMLC [id number] Common 00:00:00 00:00:00 [facility] 2020-03-16 2020-03-16 [facility] [id number] Common 10:43:00 10:43:[address] [facility] 2020-02-12 2020-02-12 [facility] 30 [id number] Common 14:05:00 14:05:[address] [facility] 2020-02-01 2020-02-01 [facility] [id number] Common 14:44:00 14:44:[address] [facility] 2020-01-25 2020-01-25 Outpatient [facility] [id number] Common 08:57:00 08:57:[address] [facility] 2020-01-19 2020-01-19 Outpatient [facility] [id number] Common 15:41:00 15:41:[address] [facility] 2020-01-12 2020-01-12 Outpatient [facility] 30 [id number] Common 13:40:00 13:40:[address] [facility] 2020-01-11 2020-01-11 Outpatient Sarah [facility] 30 [id number] Common 14:19:00 14:19:[address] [facility] Results Test Description Test Time Test Comments Results Result Comments Source Lipid Panel w/ Chol/HDL Ratio 2022-07-26 00:00:00 Test Item Value Reference Range Interpretation Comme nts Cholesterol, Total (test code 213 mg/dL See_Comment H [Automated message] The system = 2092-) which generated this result transmitted ref erence range: 100-199 mg/dL. The reference range was not u sed to interpret this result as normal/abnormal. Triglycerides (test code = 170 mg/dL See_Comment H [Automated message] The system 3047-6) which generated this result transmitted ref erence range: 0-149 mg/dL. Th e reference range was not used to interpret this result as emily l/abnormal. HDL Cholesterol (test code = 48 mg/dL See_Comment [Automated message] The system 9) which generated this result transmitted ref erence range: >39 mg/dL. The refe rence range was not used to int erpret this result as emily l/abnormal. T. Chol/HDL Ratio (test code 4.4 ratio See_Comment [Automated message] The system = 9830-1) which generated this result transmitted ref erence range: 0.0-5.0 ratio. The reference range was not u sed to interpret this result as normal/abnormal. Iron and [id number] 00:00:00 Test Item Value Reference Range Interpretation Comments Iron Bind.Cap.(TIBC) 573 ug/dL See_Comment HH [Autom ated message] (test code = 2500-7) The s tem which generated this result transmitted ref erence range: 250-450 ug/dL. The reference r jose was not used to interpret this result as normal/abnor mal. UIBC (test code = 527 ug/dL See_Comment H [Automate d message] 8861-5) The system ic h generated this result transmitted ref erence range: 111-343 ug/dL. The reference r jose was not used to interpret this result as normal/abnor mal. Iron (test code = 46 ug/dL See_Comment [Automate d message] 6298-4) The system [facility] generated this result transmitted ref erence range: 38-169 u g/dL. The reference r jose was not used to interpret this result as normal/abnor mal. Iron Saturation (test 8 % See_Comment LL [Auto mated message] code = 3892-3) The system [facility] generated this result transmitted ref erence range: 15-55 %. The reference range was not used to int erpret this result as normal/abnormal . LDL Cholesterol (Direct)2022-07-26 00:00:00 Test Item Value Reference Range Interpretation Comments LDL Chol. (Direct) 137 mg/dL See_Comment H [Automat ed message] The (test code = system which ge nerated 73905-1) this result tra nsmitted reference range : 0-99 mg/dL. The refe rence range was not u sed to interpret this result as normal/abnormal . Prothrombin Time (PT) INR [id number] 00:00:00 Test Item Value Reference Range Interpretation Comments INR (test code = 1.3 0.9-1.2 H 6301-6) Prothrombin Time (test 13.5 sec See_Comment H [Aut omated message] code = 5902-2) The system ich generated this result transmitted ref erence range: 9.1-12.0 sec. The reference r jose was not used to interpret this result as normal/abnor mal. Comp. Metabolic Panel (14) ([facility])2022-07-26 00:00:00 Test Item Value Reference Range Interpretation Comments Glucose (test code = 97 mg/dL See_Comment [Autom ated message] 7885-7) The system [employer] generated this result transmitted ref erence range: 70-99 mg /dL. The reference r jose was not used to interpret this result as normal/abnor mal. BUN (test code = 10 mg/dL See_Comment [Automated message] 3094-0) The system [employer] generated this result transmitted ref erence range: 6-24 mg/ dL. The reference r jose was not used to interpret this result as normal/abnor mal. Creatinine (test code 0.92 mg/dL See_Comment [Auto mated message] = 2160-0) The system [employer] generated this result transmitted ref erence range: 0.76-1.2 7 mg/dL. The refe rence range was not u sed to interpret this result as normal/abnor mal. BUN/Creatinine Ratio 11 9-20 (test code = 3097-3) Sodium (test code = 139 mmol/L See_Comment [Automa miguel message] 8331-2) The system [employer] generated this result transmitted ref erence range: 134-144 mmol/L. The ref erence range was not u sed to interpret this result as normal/abnor mal. Potassium (test code = 4.6 mmol/L See_Comment [Aut omated message] 1776-3) The system [employer] generated this result transmitted ref erence range: 3.5-5.2 mmol/L. The ref erence range was not u sed to interpret this result as normal/abnor mal. Chloride (test code = 99 mmol/L See_Comment [Auto mated message] 4625-0) The system [employer] generated this result transmitted ref erence range: 96-106 m mol/L. The reference r jose was not used to interpret this result as normal/abnor mal. Carbon Dioxide, Total 21 mmol/L See_Comment [Auto mated message] (test code = 2027-) The sys tem which generated this result transmitted ref erence range: 20-29 mm ol/L. The reference r jose was not used to interpret this result as normal/abnor mal. Calcium (test code = 9.6 mg/dL See_Comment [Autom ated message] 27171-3) The system [facility] generated this result transmitted ref erence range: 8.7-10.2 mg/dL. The refe rence range was not u sed to interpret this result as normal/abnor mal. Protein, Total (test 7.6 g/dL See_Comment [Autom ated message] code = 2885-2) The system [facility] generated this result transmitted ref erence range: 6.0-8.5 g/dL. The reference r jose was not used to interpret this result as normal/abnor mal. Albumin (test code = 5.4 g/dL See_Comment H [Autom ated message] 1751-7) The system [facility] generated this result transmitted ref erence range: 4.0-5.0 g/dL. The reference r jose was not used to interpret this result as normal/abnor mal. Globulin, Total (test 2.2 g/dL See_Comment [Auto mated message] code = 32206-6) The system [facility] generated this result transmitted ref erence range: 1.5-4.5 g/dL. The reference r jose was not used to interpret this result as normal/abnor mal. A/G Ratio (test code = 2.5 1.2-2.2 H 1759-0) Bilirubin, Total (test 0.3 mg/dL See_Comment [Aut omated message] code = 1975-2) The system [facility] generated this result transmitted ref erence range: 0.0-1.2 mg/dL. The reference r jose was not used to interpret this result as normal/abnor mal. Alkaline Phosphatase 80 IU/L See_Comment [Autom ated message] (test code = 6768-6) The [facility] tem which generated this result transmitted ref erence range: 44-121 I U/L. The reference r jose was not used to interpret this result as normal/abnor mal. AST (SGOT) (test code 39 IU/L See_Comment [Auto mated message] = 1920-8) The system [facility] generated this result transmitted ref erence range: 0-40 IU/ L. The reference range was not used to int erpret this result as normal/abnormal . ALT (SGPT) (test code 16 IU/L See_Comment [Auto mated message] = 1712-6) The system whic h generated this result transmitted ref erence range: 0-44 IU/ L. The reference range was not used to int erpret this result as normal/abnormal . CBC With Differential/[id number] 00:00:00 Test Item Value Reference Range Interpretation Comments WBC (test code = 7.9 x10E3/uL See_Comment [Automated 0148-2) message] The sy stem which generated this result transmitted reference range : 3.4-10.8 x10E3/ uL. The reference r jose was not used to interpret this result as normal/abnormal . RBC (test code = 5.29 x10E6/uL See_Comment [Automate d 899-8) message] The sy stem which generated this result transmitted reference range : 4.14-5.80 x10E6 /uL. The reference r jose was not used to interpret this result as normal/abnormal . Hemoglobin (test code 16.8 g/dL See_Comment [Auto mated = 938-7) message] The sy stem which generated this result transmitted reference range : 13.0-17.7 g/dL. The reference range was not used to interpret this result as normal/abnormal . Hematocrit (test code 50.2 % See_Comment [Auto mated = 9144-3) message] The sy stem which generated this result transmitted reference range : 37.5-51.0 %. Th e reference range was not used to interpret this result as normal/abnormal . MCV (test code = 95 fL See_Comment [Automated 957-2) message] The sy stem which generated this result transmitted reference range : 79-97 fL. The reference range was not used to interpret this result as normal/abnormal . MCH (test code = 31.8 pg See_Comment [Automated 355-6) message] The sy stem which generated this result transmitted reference range : 26.6-33.0 pg. T he reference range was not used to interpret this result as normal/abnormal . MCHC (test code = 33.5 g/dL See_Comment [Automate d 133-4) message] The sy stem which generated this result transmitted reference range : 31.5-35.7 g/dL. The reference range was not used to interpret this result as normal/abnormal . RDW (test code = 12.4 % See_Comment [Automated 788-0) message] The sy stem which generated this result transmitted reference range : 11.6-15.4 %. Th e reference range was not used to interpret this result as normal/abnormal . Platelets (test code 327 x10E3/uL See_Comment [Autom ated = 777-3) message] The sy stem which generated this result transmitted reference range : 150-450 x10E3/u L. The reference r jose was not used to interpret this result as normal/abnormal . Neutrophils (test 72 % Not Estab. % code = 770-8) Lymphs (test code = 21 % Not Estab. % 736-9) Monocytes (test code 6 % Not Estab. % = 5905-5) Eos (test code = 1 % Not Estab. % 713-8) Basos (test code = 0 % Not Estab. % 706-2) Immature Cells (test code = UNLOINC) Neutrophils 5.6 x10E3/uL See_Comment [Automated (Absolute) (test code messag e] The system = 751-8) which generated this result transmitted reference range : 1.4-7.0 x10E3/u L. The reference r jose was not used to interpret this result as normal/abnormal . Lymphs (Absolute) 1.7 x10E3/uL See_Comment [Automate d (test code = 731-0) message] The system which generated this result transmitted reference range : 0.7-3.1 x10E3/u L. The reference r jose was not used to interpret this result as normal/abnormal . Monocytes(Absolute) 0.5 x10E3/uL See_Comment [Automa miguel (test code = 742-7) message] The system which generated this result transmitted reference range : 0.1-0.9 x10E3/u L. The reference r jose was not used to interpret this result as normal/abnormal . Eos (Absolute) (test 0.1 x10E3/uL See_Comment [Autom ated code = 711-2) message] The s ystem which generated this result transmitted reference range : 0.0-0.4 x10E3/u L. The reference r jose was not used to interpret this result as normal/abnormal . Baso (Absolute) (test 0.0 x10E3/uL See_Comment [Auto mated code = 704-7) message] The s ystem which generated this result transmitted reference range : 0.0-0.2 x10E3/u L. The reference r jose was not used to interpret this result as normal/abnormal . Immature Granulocytes 0 % Not Estab. % (test code = 53811-9) Immature Grans (Abs) 0.0 x10E3/uL See_Comment [Autom ated (test code = 57567-7) messag e] The system which generated this result transmitted reference range : 0.0-0.1 x10E3/u L. The reference r jose was not used to interpret this result as normal/abnormal . NRBC (test code = 79590-5) Hematology Comments: (test code = 32985-3) Lipid Panel w/ Chol/HDL [id number] 00:00:00 Test Item Value Reference Range Interpretation Comments Cholesterol, Total (test code = 2093-3) 193 100-199 Triglycerides (test code = 2571-8) 184 0-149 HDL Cholesterol (test code = 2085-9) 46 >39 T. Chol/HDL Ratio (test code = 9830-1) 4.2 0.0-5.0 PSA, Serum (Serial Monitor)2021-12-07 00:00:00 Test Item Value Reference Range Interpretation Comments Prostate Specific Ag (test code = 0.6 0.0-4.0 2857-1) Iron and [id number] 00:00:00 Test Item Value Reference Range Interpretation Comments Iron Bind.Cap.(TIBC) (test code = 465 268-848 9162-7) UIBC (test code = 2501-5) 416 111-343 Iron (test code = 2498-4) 49 38-169 Iron Saturation (test code = 2502-3) 11 15-55 LDL Cholesterol (Direct)2021-12-07 00:00:00 Test Item Value Reference Range Interpretation Comments LDL Chol. (Direct) (test code = 115 0-99 08979-6) Prothrombin Time (PT) INR [id number] 00:00:00 Test Item Value Reference Range Interpretation Comments INR (test code = 6301-6) 1.6 0.9-1.2 Prothrombin Time (test code = 5902-2) 16.1 9.1-12.0 Comp. Metabolic Panel (14) ([facility])2021-12-07 00:00:00 Test Item Value Reference Range Interpretation Comments Glucose (test code = 2345-7) 95 65-99 BUN (test code = 3094-0) 14 6-24 Creatinine (test code = 2160-0) 0.96 0.76-1.27 BUN/Creatinine Ratio (test code = 15 9-20 3097-3) Sodium (test code = 2951-2) 140 134-144 Potassium (test code = 2823-3) 4.7 3.5-5.2 Chloride (test code = 2075-0) 100 96-106 Carbon Dioxide, Total (test code = -2028-06) Calcium (test code = 29419-8) 8.2 8.7-10.2 Protein, Total (test code = 2885-2) 6.5 6.0-8.5 Albumin (test code = 1751-7) 4.4 4.0-5.0 Globulin, Total (test code = 34190-7) 2.1 1.5-4.5 A/G Ratio (test code = 1759-0) 2.1 1.2-2.2 Bilirubin, Total (test code = 1975-2) <0.2 0.0-1.2 Alkaline Phosphatase (test code = 112 44-121 6768-6) AST (SGOT) (test code = 1920-8) 36 0-40 ALT (SGPT) (test code = 1742-6) 13 0-44 CBC With Differential/[id number] 00:00:00 Test Item Value Reference Range Interpretation Comments WBC (test code = 6690-2) 6.8 3.4-10.8 RBC (test code = 789-8) 4.67 4.14-5.80 Hemoglobin (test code = 718-7) 15.3 13.0-17.7 Hematocrit (test code = 4544-3) 44.3 37.5-51.0 MCV (test code = 787-2) 95 79-97 MCH (test code = 785-6) 32.8 26.6-33.0 MCHC (test code = 786-4) 34.5 31.5-35.7 RDW (test code = 788-0) 14.4 11.6-15.4 Platelets (test code = 777-3) 282 150-450 Neutrophils (test code = 770-8) 73 Not Estab. Lymphs (test code = 736-9) 21 Not Estab. Monocytes (test code = 5905-5) 6 Not Estab. Eos (test code = 713-8) 0 Not Estab. Basos (test code = 706-2) 0 Not Estab. Immature Cells (test code = UNLOINC) Neutrophils (Absolute) (test code = 4.9 1.4-7.0 751-8) Lymphs (Absolute) (test code = 731-0) 1.4 0.7-3.1 Monocytes(Absolute) (test code = 742-7) 0.4 0.1-0.9 Eos (Absolute) (test code = 711-2) 0.0 0.0-0.4 Baso (Absolute) (test code = 704-7) 0.0 0.0-0.2 Immature Granulocytes (test code = 0 Not Estab. 24878-9) Immature Grans (Abs) (test code = 0.0 0.0-0.1 59806-4) NRBC (test code = 05330-8) Hematology Comments: (test code = 62605-4)
[2023-05-30] MEDS ORDERED: NA CHLORIDE 0.9% 1,000 ML ONE ×4 (15:34→20:52)
[2023-05-30 15:46] LABS: Absolute Lymphocytes (CBC) 1.4 K/uL (0.7-4.9); Hematocrit 52.2 % (39.6-49.0); Lymphocytes % 6.1 % (15.3-44.8); MPV 7.8 fL (7.6-11.3); Platelets 341 thou/uL (152-406); RBC Red Blood Cell Count 5.61 M/uL (4.33-5.43)
[2023-05-30 15:50] LABS: Protime INR 2.3
[2023-05-30 16:05] LABS: ALT/SGPT 28 U/L (16-61); AST/SGOT 49 U/L (15-37); Albumin 5.1 g/dL (3.4-5.0); Alkaline Phosphatase 97 U/L (45-117); BUN Blood Urea Nitrogen 38 mg/dL (7-18); Bicarbonate 21 mEq/L (21-32); Bilirubin Direct 0.2 mg/dL (0-0.2); Bilirubin Indirect, Calculated 0.8 mg/dL (0.2-0.8); Creatine Phosphokinase 421 U/L (39-308); Glomerular Filtration Rate 23 ml/min (=/>90); Glucose Level 107 mg/dL (74-106); Potassium 5.7 mEq/L (3.5-5.1); Protein, Total 9.3 g/dL (6.4-8.2); Sodium Level 131 mEq/L (136-145)
[2023-05-30 17:54] LABS: Phosphorus 6.2 mg/dL (2.5-4.9)
[2023-05-30 17:57] LABS: Magnesium 2.3 mg/dL (1.6-2.4)
--- NOTE | 2023-05-30 17:57 | ER ---
Nurse's Notes [facility] Name: Karl Hinojosa Age: 48 yrs Sex: Male : 1975 Arrival Date: 05/30/2023 Time: 14:48 Bed 19 Private MD: Diagnosis: Acute kidney failure, unspecified;Schizophrenia, unspecified;Bipolar disorder, unspecified;Hyperkalemia;Elevated white blood cell count Presentation: 05/30 15:06 Chief complaint: EMS states: called by PD as patient had been sending them pictures me1 stating people were in them and there was no one in the picture. PD called back to bring patient in to the ER because the patient was outside running around for extended periods of time and they were concerned for his safety. Patient does report visual hallucinations x 2 days. Patient gave his knife to EMS and was given to this nurse on arrival to the ER. Coronavirus screen: Vaccine status: Patient reports being unvaccinated. Ebola Screen: No symptoms or risks identified at this time. Initial Sepsis Screen: Does the patient meet any 2 criteria? HR > 90 bpm. No. Patient's initial sepsis screen is negative. Does the patient have a suspected source of infection? No. Patient's initial sepsis screen is negative. Risk Assessment: Do you want to hurt yourself or someone else? Patient reports no desire to harm self or others. Onset of symptoms is unknown. 15:06 Method Of Arrival: EMS me1 15:06 Acuity: JENSEN 3 me1 Historical: - Allergies: 20:11 No Known Allergies; me1 - PMHx: 15:11 Anxiety; Bipolar disorder; CVA; Hypertension; Schizophrenia; Crohn's disease; restless me1 leg syndrome; antiphosphlipid antibody syndrome; - Immunization history:: Adult Immunizations unknown. - Social history:: Smoking status: Patient reports the use of cigarette tobacco products, smokes a pipe. , Patient uses street drugs, marijuana. - Family history:: not pertinent. Screenin:14 [facility] ED Fall Risk Assessment (Adult) History of falling in the last 3 months, me1 including since admission No falls in past 3 months (0 pts) Confusion or Disorientation Yes (5 pts) Intoxicated or Sedated No (0 pts) Impaired Gait No (0 pts) Mobility Assist Device Used No (0 pt) Altered Elimination No (0 pt) Score/Fall Risk Level 3 or more points = High Risk Oriented to surroundings, Maintained a safe environment, Assessed \\T\\ reinforced patient's understanding of fall precautions, Hourly rounding (assess needs \\T\\ fall precautionary measures) done. Abuse screen: Denies threats or abuse. Nutritional screening: No deficits noted. Tuberculosis screening: No symptoms or risk factors identified. Assessment: 15:14 General: Appears slender, unkempt, well developed, Behavior is cooperative, appropriate me1 for age, anxious, restless, Reports having visual hallucinations. Denies fever, feeling ill, fatigue, chills. Pain: Denies pain. Neuro: Level of Consciousness is awake, alert, obeys commands, Oriented to person, place, time, situation, Appropriate for age Reports visual hallucinations. . Cardiovascular: Capillary refill < 3 seconds diaphoretic. Clothes are saturated in sweat upon arrival. Per report patient was outside running around for an extended period of time. . Respiratory: Airway is patent Respiratory effort is even, unlabored, Respiratory pattern is regular, symmetrical. Derm: Skin is intact, Skin is diaphoretic, Skin is pale. 15:14 General: Patient refused to provide urine for a UA or drug screen and stated, "I can't cm10 take a drug test. My psych doctor will stop prescribing me meds if I test positive and I will test positive right now." When asked what drugs he has taken patient stated, "marijuana and opiates.". 16:15 Reassessment: Patient is A\\T\\Ox4 but requires redirection and close monitoring as he is me1 not making appropriate judgement. Unable to remain focused, noted to be rambling in room and talking to people that are not there. Attention span is very short and he is very forgetful requiring redirection several times an hour. . 16:25 Reassessment: No changes from previously documented assessment. Patient and/or family me1 updated on plan of care and expected duration. Pain level reassessed. 20:00 Reassessment: Removed all monitoring equipment and was noted pacing around the room on me1 his phone. Educated on the importance of keeping on monitoring equipment, verbalized understanding but continued to refuse. . 21:57 Reassessment: Pt noted to be ambulating in room and IV to right hand had been removed me1 by patient. 21:59 Reassessment: Pt admitted to ER hold, see charting in [facility]. me1 05/31 07:32 Reassessment: Pt AMA'd from hospital status, see [facility] charting. jl7 Vital Signs: 05/30 15:06 BP 97 / 38; Pulse 108; Resp 22; Temp 98.2(O); Pulse Ox 100% on R/A; Weight 63.5 kg; me1 Height 5 ft. 7 in. ; 16:24 BP 122 / 84; Pulse 96; Resp 22; Pulse Ox 96% ; me1 17:30 BP 106 / 78; Pulse 90; Resp 19; Pulse Ox 100% ; me1 18:01 BP 121 / 73; Pulse 82; Resp 20; Pulse Ox 100% on R/A; me1 19:24 BP 122 / 66; Pulse 89; Resp 18; Pulse Ox 96% on R/A; me1 15:06 Body Mass Index 21.93 (63.50 kg, 170.18 cm) me1 ED Course: 14:56 Patient arrived in ED. db 14:56 Jean Choe MD is Attending Physician. rt 15:05 Brooklyn Hassan, RN is Primary Nurse. me1 15:11 Triage completed. me1 15:13 Arm band placed on Patient placed in an exam room. me1 15:14 Patient has correct armband on for positive identification. Bed in low position. Call tx1 light in reach. Side rails up X 1. Provided Education on: POC. Verbalized understanding. . 15:14 No provider procedures requiring assistance completed. Maintain EMS IV. Dressing tx1 intact. Good blood return noted. Site clean \\T\\ dry. Gauge \\T\\ site: 22 gauge to LAC. . 15:35 Acetaminophen Sent. me1 15:35 Basic Metabolic Panel Sent. me1 15:35 CBC with Diff Sent. me1 15:35 ETOH Level Sent. me1 15:35 Hepatic Function Sent. me1 15:35 PT-INR Sent. me1 15:35 Ptt, Activated Sent. me1 15:35 Salicylate Sent. me1 17:06 spoke with [facility] office to get a mental health officer for LEWIS. bc6 17:53 Attending Physician role handed off by Jean Choe MD howie 17:53 Fawad Seals MD is Attending Physician. howie 17:54 Jaswant Harris MD is Hospitalizing Provider. howie 18:05 parks worker here LEWIS placed . bc6 18:09 Inserted saline lock: 22 gauge in right hand, using aseptic technique. cm10 18:40 CT Chest Abdomen Pelvis W/O Contrast In Process Unspecified. EDMS 18:41 XRAY Chest (1 view) In Process Unspecified. EDMS 19:04 Inserted saline lock: 22 gauge in right antecubital area, using aseptic technique. kc6 Blood collected. 19:30 Chem 7: REPEAT NOW Sent. cm10 21:58 Patient admitted, IV remains in place. me1 05/31 00:02 Report received from DANIEL Warner. ha1 Administered Medications: 05/30 15:35 Drug: NS 0.9% IV 1000 ml Route: IV; Rate: 1 bolus; Site: left antecubital; me1 17:13 Follow up: IV Status: Completed infusion; IV Intake: 1000ml me1 17:24 Follow up: IV Status: Completed infusion; IV Intake: 1000ml me1 17:24 Drug: NS 0.9% IV 1000 ml Route: IV; Rate: 1 bolus; Site: left antecubital; me1 19:20 Follow up: IV Status: Completed infusion cm10 19:23 Drug: Ativan IVP 1 mg Route: IVP; Site: right hand; cm10 20:09 Follow up: Response: No adverse reaction; Anxiety decreased me1 19:29 Drug: NS 0.9% IV 1000 ml Route: IV; Rate: 1 bolus; Site: right hand; cm10 20:40 Follow up: IV Status: Completed infusion; IV Intake: 1000ml me1 19:34 Drug: Rocephin IV 1 grams Route: IV; Rate: per protocol; Site: right hand; cm10 19:45 Follow up: IV Status: Completed infusion me1 20:40 Drug: NS 0.9% IV 1000 ml Route: IV; Rate: 125 ml/hr; Site: right hand; me1 23:28 Follow up: IV Status: Infusion continued upon admission; rate was increased to 150 me1 ml/hr per [employer] order. 20:52 Drug: Ativan IVP 1 mg Route: IVP; Site: right hand; me1 23:27 Follow up: Response: No adverse reaction me1 20:53 Not Given (Patient Refused; reports geodon causes pain to BLE. Dr Seals informed. ): me1 Geodon IM 20 mg IM once Medication: 15:14 VIS not applicable for this client. me1 Intake: 17:13 IV: 1000ml; Total: 1000ml. me1 17:24 IV: 1000ml; Total: 2000ml. me1 20:40 IV: 1000ml; Total: 3000ml. me1 Outcome: 17:57 Decision to Hospitalize by Provider. [facility] 21:58 Admitted to ER Hold. Please see [facility] for further documentation. [place] 21:58 Condition: good 21:58 Instructed on the need for admit. 05/31 07:32 Patient left the ED. jl7 Signatures: Dispatcher [employer] EDFawda Feng MD MD cha Leal, Jahala, RN RN jl7 Shayy Gifford, DANIEL RN ha1 Eva Samuels RN RN kc6 Kalani Mejia, RN Jean Knapp MD MD rt [place]son, Breana bc6 Alana Davis RN RN cm10 Brooklyn Hassan RN RN me1
--- NOTE | 2023-05-30 17:57 | EDPHYS ---
Physician Documentation [facility] Name: Karl Hinojosa Age: 48 yrs Sex: Male : 1975 Arrival Date: 05/30/2023 Time: 14:48 Bed 19 Private MD: ED Physician Fawad Seals HPI: 05/30 17:18 This 48 yrs old Male presents to ER via EMS with complaints of Heat Exposure. rt 17:18 Patient presents to the ED with reported heat exposure. Patient was outside for long rt time in the heat. Patient was reportedly hallucinating, seeing people who were not there in the ambulance. Reports muscle cramps. Denies other physical complaints. Denies SI, HI. Symptoms are moderate severity, no other aggravating or alleviating factors.. Historical: - Allergies: 20:11 No Known Allergies; me1 - PMHx: 15:11 Anxiety; Bipolar disorder; CVA; Hypertension; Schizophrenia; Crohn's disease; restless me1 leg syndrome; antiphosphlipid antibody syndrome; - Immunization history:: Adult Immunizations unknown. - Social history:: Smoking status: Patient reports the use of cigarette tobacco products, smokes a pipe. , Patient uses street drugs, marijuana. - Family history:: not pertinent. ROS: 17:18 Cardiovascular: Negative for chest pain, palpitations, and edema, Respiratory: Negative rt for shortness of breath, cough, wheezing, and pleuritic chest pain, Abdomen/GI: Negative for abdominal pain, nausea, vomiting, diarrhea, and constipation, MS/Extremity: Negative for injury and deformity, Skin: Negative for injury, rash, and discoloration. 17:18 Constitutional: Positive for body aches, Negative for fever. 17:18 MS/extremity: Positive for Myalgias, negative for injury. 17:18 Psych: Positive for visual hallucinations, Negative for suicide gesture, suicidal ideation. Exam: 17:18 Constitutional: This is a well developed, well nourished patient who is awake, alert, rt and in no acute distress. Chest/axilla: Normal chest wall appearance and motion. Nontender with no deformity. No lesions are appreciated. Cardiovascular: Regular rate and rhythm with a normal S1 and S2. No gallops, murmurs, or rubs. Normal PMI, no JVD. No pulse deficits. Respiratory: Lungs have equal breath sounds bilaterally, clear to auscultation and percussion. No rales, rhonchi or wheezes noted. No increased work of breathing, no retractions or nasal flaring. Abdomen/GI: Soft, non-tender, with normal bowel sounds. No distension or tympany. No guarding or rebound. No evidence of tenderness throughout. Skin: Warm, dry with normal turgor. Normal color with no rashes, no lesions, and no evidence of cellulitis. 17:18 ECG was reviewed by the Attending Physician. 17:18 Psych: Flight of ideas is present, patient seems to be paranoid, acutely psychotic. Vital Signs: 15:06 BP 97 / 38; Pulse 108; Resp 22; Temp 98.2(O); Pulse Ox 100% on R/A; Weight 63.5 kg; me1 Height 5 ft. 7 in. ; 16:24 BP 122 / 84; Pulse 96; Resp 22; Pulse Ox 96% ; me1 17:30 BP 106 / 78; Pulse 90; Resp 19; Pulse Ox 100% ; me1 18:01 BP 121 / 73; Pulse 82; Resp 20; Pulse Ox 100% on R/A; me1 19:24 BP 122 / 66; Pulse 89; Resp 18; Pulse Ox 96% on R/A; me1 15:06 Body Mass Index 21.93 (63.50 kg, 170.18 cm) tn1 MDM: 15:00 Patient medically screened. rt 17:24 ED course: Patient was found to have an acute renal failure with hyperkalemia. Patient rt has peaked T waves consistent with hyperkalemia. I discussed this with the patient. I strongly recommended admission to the hospital, believe that acute hyperkalemia with changes in EKG is a life-threatening condition. Patient refuses admission to the hospital. In my opinion, the patient appears to being acutely psychotic and responding to internal stimuli and is exhibiting paranoia. I do not believe that he has decision-making capacity to refuse admission I do not believe that he understands the seriousness of his condition. Informed the charge nurse, will try to obtain an LEWIS to allow for us to take care of this patient.. 17:59 Differential Diagnosis altered mental status, sepsis. Data reviewed: vital signs, howie nurses notes, lab test result(s), EKG, radiologic studies, CT scan, plain films. Consideration of Admission/Observation Escalation of care including admission/observation considered. I considered the following discharge prescriptions or medication management in the emergency department Medications were administered in the Emergency Department. See MAR. Test considered but Not performed: Ultrasound no renal usg. Care significantly affected by the following chronic conditions: Hypertension, anxiety, bipolar, cva, antiphosphlipid antibodies. 05/30 15:08 Order name: Acetaminophen; Complete Time: 19:08 rt 05/30 15:08 Order name: Basic Metabolic Panel; Complete Time: 19:08 rt 05/30 15:08 Order name: CBC with Diff; Complete Time: 16:37 rt 05/30 15:08 Order name: ETOH Level; Complete Time: 16:37 rt 05/30 15:08 Order name: Hepatic Function; Complete Time: 19:08 rt 05/30 15:08 Order name: PT-INR; Complete Time: 16:37 rt 05/30 15:08 Order name: Ptt, Activated; Complete Time: 16:37 rt 05/30 15:08 Order name: Salicylate; Complete Time: 16:37 rt 05/30 15:08 Order name: Urinalysis w/ reflexes rt 05/30 15:08 Order name: Urine Drug Screen rt 05/30 15:08 Order name: CPK; Complete Time: 19:08 rt 05/30 17:21 Order name: Phosphorus; Complete Time: 19:08 EDMS 05/30 17:21 Order name: Magnesium; Complete Time: 19:08 EDMS 05/30 17:54 Order name: Magnesium; Complete Time: 19:08 howie 05/30 17:54 Order name: NT PRO-BNP; Complete Time: 19:08 howie 05/30 17:54 Order name: Troponin HS; Complete Time: 19:08 howie 05/30 17:54 Order name: AMMONIA; Complete Time: 19:08 howie 05/30 17:59 Order name: Blood Culture Adult (2) howie 05/30 17:59 Order name: Lactate w/ 2H reflex if indic.; Complete Time: 19:08 howie 05/30 18:28 Order name: Chem 7: REPEAT NOW; Complete Time: 20:38 bp 05/30 19:20 Order name: Urinalysis w/ reflexes EDMS 05/30 19:20 Order name: CBC with Automated Diff EDMS 05/30 19:20 Order name: CBC with Automated Diff; Complete Time: 07:19 [facility] 05/30 19:20 Order name: Comprehensive Metabolic Panel EDAZ 05/30 19:20 Order name: Comprehensive Metabolic Panel; Complete Time: 07:19 [facility] 05/30 19:20 Order name: Creatine Phosphokinase [facility] 05/30 19:20 Order name: Creatine Phosphokinase; Complete Time: 07:19 [facility] 05/30 19:20 Order name: Creatine Phosphokinase [facility] 05/30 19:20 Order name: Creatine Phosphokinase [facility] 05/30 19:20 Order name: Magnesium EDAZ 05/30 19:20 Order name: Magnesium; Complete Time: 07:19 [facility] 05/31 05:13 Order name: Uric Acid; Complete Time: 07:19 [facility] 05/30 17:54 Order name: XRAY Chest (1 view); Complete Time: 19:08 [facility] 05/30 17:59 Order name: CT Chest Abdomen Pelvis W/O Contrast; Complete Time: 19:08 [facility] 05/30 15:08 Order name: EKG; Complete Time: 15:09 05/30 19:16 Order name: CONS Physician Consult [facility] 05/30 19:20 Order name: Regular [facility] 05/30 15:08 Order name: EKG - Nurse/Tech; Complete Time: 16:02 rt 05/30 15:08 Order name: IV Saline Lock; Complete Time: 15:35 05/30 15:08 Order name: Labs collected and sent; Complete Time: 15:35 rt 05/30 15:08 Order name: Suicide Screening ([place]); Complete Time: 16:02 05/30 17:54 Order name: Cardiac monitoring; Complete Time: 18:41 [facility] 05/30 17:54 Order name: O2 Per Protocol; Complete Time: 18:41 [facility] 05/30 17:54 Order name: O2 Sat Monitoring; Complete Time: 18:41 [facility] EC:18 Rate is 96 beats/min. Rhythm is regular, Normal Sinus Rhythm with No ectopy. Right axis rt deviation noted. [place] interval is normal. QRS interval is normal. QT interval is normal. No Q waves. T waves are Peaked. Administered Medications: 15:35 Drug: NS 0.9% IV 1000 ml Route: IV; Rate: 1 bolus; Site: left antecubital; me1 17:13 Follow up: IV Status: Completed infusion; IV Intake: 1000ml me1 17:24 Follow up: IV Status: Completed infusion; IV Intake: 1000ml me1 17:24 Drug: NS 0.9% IV 1000 ml Route: IV; Rate: 1 bolus; Site: left antecubital; me1 19:20 Follow up: IV Status: Completed infusion cm10 19:23 Drug: Ativan IVP 1 mg Route: IVP; Site: right hand; cm10 20:09 Follow up: Response: No adverse reaction; Anxiety decreased me1 19:29 Drug: NS 0.9% IV 1000 ml Route: IV; Rate: 1 bolus; Site: right hand; cm10 20:40 Follow up: IV Status: Completed infusion; IV Intake: 1000ml me1 19:34 Drug: Rocephin IV 1 grams Route: IV; Rate: per protocol; Site: right hand; cm10 19:45 Follow up: IV Status: Completed infusion me1 20:40 Drug: NS 0.9% IV 1000 ml Route: IV; Rate: 125 ml/hr; Site: right hand; me1 23:28 Follow up: IV Status: Infusion continued upon admission; rate was increased to 150 me1 ml/hr per [employer] order. 20:52 Drug: Ativan IVP 1 mg Route: IVP; Site: right hand; me1 23:27 Follow up: Response: No adverse reaction me1 20:53 Not Given (Patient Refused; reports geodon causes pain to BLE. Dr Seals informed. ): me1 Geodon IM 20 mg IM once Disposition Summary: 05/30/23 17:57 Hospitalization Ordered Hospitalization Status: Inpatient Admission howie Provider: Jaswant Harris howie Condition: Fair howie Problem: new howie Symptoms: have improved howie Bed/Room Type: Standard howie Location: Intensive Care Unit(05/31/23 06:00) Room Assignment: 3-(05/31/23 06:00) Diagnosis - Acute kidney failure, unspecified howie - Schizophrenia, unspecified howie - Bipolar disorder, unspecified howie - Hyperkalemia howie - Elevated white blood cell count howie Forms: - Medication Reconciliation Form howie - SBAR form howie - Leadership Thank You Letter howie Signatures: Dispatcher [employer] Guadalupe Nixon RN RN mw Anderson, Corey, MD MD cha [place], Ryan, MD MD rt Martinez, Clarissa, RN RN cm10 Brooklyn Hassan RN RN me1 Corrections: (The following items were deleted from the chart) 17:20 17:17 MAGNESIUM+C.LAB.BRZ ordered. EDMS EDMS 17:20 17:17 PHOSPHORUS+C.LAB.BRZ ordered. EDMS EDMS 19:17 17:57 Telemetry/MedSurg (Inpatient) howie mw 19:17 17:57 [facility] mw 05/31 06:00 05/30 19:17 BR ER HOLD mw mw 05/31 06:00 05/30 19:17 ERHOLD- mw mw
--- NOTE | 2023-05-30 18:17 | P.HP ---
Certification for Inpatient Patient admitted to: Inpatient With expected LOS: <2 Midnights Patient will require the following post-hospital care: None Practitioner: I am a practitioner with admitting privileges, knowledge of patient current condition, hospital course, and medical plan of care. Services: Services provided to patient in accordance with Admission requirements found in Title 42 Section 412.3 of the Code of Federal Regulations <Akila Moore - Last Filed: 05/30/23 20:24> Patient History Date of Service: 05/30/23 History of Present Illness: 48-year-old male with a past medical history of bipolar, CVA, hypertension, Crohn's disease, schizophrenia, antiphospholipid antibody syndrome, restless leg, presents to the emergency room with heat exhaustion. He reports exposure to the heat today. He reports hallucinations, muscle cramps, that started today. He denies nausea vomiting diarrhea shortness of breath chest pain dizziness anemia. He reports of history of bipolar mild hallucination during acute dehydration episode improving. He denies suicidal homicidal ideations. Plan to admit for acute renal failure with hyperkalemia, EKG with peaked T waves, schizophrenia with paranoia, bipolar, heat exhaustion, leukocytosis. Laboratory evaluation WBCs 22.40, left shift 86.7, hyponatremia sodium 131, hyperkalemia 5.7, acute renal failure BUN 38 creatinine 3.24, elevated CK4 21, UDS, UA pending, - Past Medical/Surgical History -: Bipolar -: Schizophrenia -: Antiphospholipid -: Anxiety -: CVA -: Brain surgery per suppose CVA Psychosocial/ Personal History: Tobacco use, marijuana use - Social History Smoking Status: Current some day smoker Smoking therapy provided: No Alcohol use: No CD- Drugs: Yes Caffeine use: Yes Place of Residence: Home <Akila Moore - Last Filed: 05/30/23 20:24> Date of Service: 05/31/23 <Jaswant Harris - Last Filed: 05/31/23 08:10> Allergies No Known Allergies Allergy (Unverified 05/30/23 21:34) Review of Systems 10-point ROS is otherwise unremarkable <Akila Moore - Last Filed: 05/30/23 20:24> Physical Examination - Physical Exam General: Alert, In no apparent distress, Oriented x3 HEENT: Atraumatic, Normocephalic, PERRLA Neck: Supple, 2+ carotid pulse no bruit, JVD not distended Respiratory: Clear to auscultation bilaterally, Normal air movement Cardiovascular: No edema, Normal pulses, Regular rate/rhythm, Normal S1 S2 Gastrointestinal: Normal bowel sounds, Soft and benign, Non-distended Musculoskeletal: No clubbing, No swelling Integumentary: No rashes, No breakdown Neurological: Normal speech, Normal strength at 5/5 x4 extr, Cranial nerves 3-12 intact Other Physical/Emotional Findings: moderate anxiety - Studies Laboratory Data (last 24 hrs) 05/30/23 05/30/23 05/30/23 17:17 15:33 15:33 WBC 22.40 H Hgb 17.7 Hct 52.2 H Plt Count 341 PT 25.3 H INR 2.30 APTT 39.2 H Sodium Potassium BUN Creatinine Glucose Phosphorus Cancelled Magnesium Cancelled Total Bilirubin AST ALT Alkaline Phosphatase 05/30/23 15:33 WBC Hgb Hct Plt Count PT INR APTT Sodium 131 L Potassium 5.7 H BUN 38 H Creatinine 3.24 H Glucose 107 H Phosphorus 6.2 H Magnesium 2.3 Total Bilirubin 1.0 AST 49 H ALT 28 Alkaline Phosphatase 97 <Akila Moore - Last Filed: 05/30/23 20:24> - Studies Laboratory Data (last 24 hrs) 05/30/23 05/30/23 05/30/23 18:29 18:26 17:17 WBC Hgb Hct Plt Count PT INR APTT Sodium 135 L D Potassium 4.5 D BUN 42 H Creatinine 2.59 H Glucose 105 Phosphorus Cancelled Magnesium 2.1 Cancelled Total Bilirubin AST ALT Alkaline Phosphatase 05/30/23 05/30/23 05/30/23 15:33 15:33 15:33 WBC 22.40 H Hgb 17.7 Hct 52.2 H Plt Count 341 PT 25.3 H INR 2.30 APTT 39.2 H Sodium 131 L Potassium 5.7 H BUN 38 H Creatinine 3.24 H Glucose 107 H Phosphorus 6.2 H Magnesium 2.3 Total Bilirubin 1.0 AST 49 H ALT 28 Alkaline Phosphatase 97 <Jaswant Harris - Last Filed: 05/31/23 08:10> Assessment and Plan - Plan Assessment plan Acute renal failure with hyperkalemia Heat exhaustion Leukocytosis Hyponatremia Bipolar with history of mark Schizophrenia History of a CVA History of antiphospholipid antibody syndrome Restless leg Crohn's disease DVT prophylaxis Assessment plan Acute renal failure with hyperkalemia Heat exhaustion Hyponatremia IV fluids, trend kidney function trend electrolytes Nephrology consult Dr. Johnson notified hyperkalemia 5.7, acute renal failure BUN 38 creatinine 3.24, elevated CK4 21, UDS, UA pending, 8 Rate is 96 beats/min. Rhythm is regular, Normal Sinus Rhythm with No ectopy. Right axis rt deviation noted. IA interval is normal. QRS interval is normal. QT interval is normal. No Q waves. T waves are Peaked. Leukocytosis WBCs 22.40, left shift 86.7 Trend WBCs, Rocephin given in the ER, Rocephin daily Trend urine cultures, blood cultures Bipolar with history of mark Schizophrenia Resume appropriate home meds DVT prophylaxis heparin Regular diet Full code Discharge Plan: Home Plan to discharge in: 48 Hours - Advance Directives Does patient have a Living Will: No Does patient have a Durable POA for Healthcare: No - Code Status/Comfort Care Code Status: Full Code Physician Review: Patient Assessed, Agree with Above Assessment and Plan Critical Care: No Time Spent Managing Pts Care (In Minutes): 50 <Akila Moore - Last Filed: 05/30/23 20:24> Date of Service: 05/31/23 Patient was acutely agitated and wanting to leave. Patient was AAO x4 and patient was denying any suicidal or homicidal ideations. <Jaswant Harris - Last Filed: 05/31/23 08:10>
--- NOTE | 2023-05-30 18:58 | RAD REPORT ---
EXAM DESCRIPTION: CT - Chest Abd Pelvis Wo Con - 05/30/2023 6:38 pm CLINICAL HISTORY: Cough and abdominal pain COMPARISON: none TECHNIQUE: Computed axial tomography of the chest, abdomen and pelvis was obtained. Oral contrast wa s given. IV contrast was not requested. All CT scans are performed using dose optimization technique as appropriate and may include automated exposure control or mA/KV adjustment according to patient size. FINDINGS: The evaluation of mediastinum, clif, vessels and solid organs is limited secondary to the lack of IV contrast administration The lungs are clear No mediastinal or hilar lymphadenopathy is seen. A pleural effusion is not present. A pericardial effusion is not seen. Ascending thoracic aorta is dilated measuring 3.5 centimeters. No aneurysm noted however. The liver, spleen, pancreas, adrenals and kidneys appear grossly normal There is no evidence of diverticulitis. IMPRESSION: No acute abnormality displayed
[2023-05-30 18:59] LABS: Magnesium 2.1 mg/dL (1.6-2.4); Troponin High Sensitivity 52.6 pg/mL (<58.9)
--- NOTE | 2023-05-30 18:59 | RAD REPORT ---
EXAM DESCRIPTION: Juan Single View05/30/2023 6:39 pm CLINICAL HISTORY: cough COMPARISON: none FINDINGS: The lungs appear clear of acute infiltrate. The heart is normal size IMPRESSION: No acute abnormalities displayed
[2023-05-30] MEDS ORDERED: ACETAMINOPHEN 500 MG TAB PO PRN (19:17)
[2023-05-30] MEDS ORDERED: ONDANSETRON 4 MG/2 ML VIAL IV PRN (19:17)
[2023-05-30] MEDS ORDERED: LORAZEPAM 0.5 MG TABLET PO PRN (19:17)
[2023-05-30] MEDS ORDERED: ZOLPIDEM TARTRATE 5 MG TABLET PO PRN (19:17)
[2023-05-30] MEDS ORDERED: LORazepam 2 MG/ML VIAL ONE (19:24)
[2023-05-30] MEDS ORDERED: WATER FOR INJ,STERILE 10 ML ONE (19:24)
[2023-05-30] MEDS ORDERED: ZIPRASIDONE MESYLA 20 MG/VIAL IM ONE (19:24)
[2023-05-30] MEDS ORDERED: CEFTRIAXONE 1000 MG/VIAL ONE (19:43)
[2023-05-30 19:51] LABS: Potassium 4.5 mEq/L (3.5-5.1)
[2023-05-30 22:53] VITALS: BMI 22.4
[2023-05-30] MEDS: NA CHLORIDE 0.9% 1,000 ML IV SCH (22:54)
[2023-05-31] MEDS ORDERED: HEPARIN 5000 UNIT/ML 1 ML VIAL SQ SCH (01:00)
[2023-05-31] MEDS ORDERED: HEPARIN 5000 UNIT/ML 1 ML VIAL ONE (01:48)
[2023-05-31] MEDS: NA CHLORIDE 0.9% 1,000 ML IV SCH (02:40)
[2023-05-31] MEDS ORDERED: ZOLPIDEM TARTRATE 5 MG TABLET ONE (04:48)
[2023-05-31 04:51] LABS: Absolute Lymphocytes (CBC) 1.8 K/uL (0.7-4.9); Hematocrit 44.2 % (39.6-49.0); Lymphocytes % 14.9 % (15.3-44.8); MCV 93.7 fL (80-100); MPV 7.7 fL (7.6-11.3); Platelets 285 thou/uL (152-406); RBC Red Blood Cell Count 4.71 M/uL (4.33-5.43)
[2023-05-31 05:12] LABS: Albumin 4.1 g/dL (3.4-5.0); Bilirubin Total 0.6 mg/dL (0.2-1.0); Potassium 4.1 mEq/L (3.5-5.1); Protein, Total 7.4 g/dL (6.4-8.2); Uric Acid 7.9 mg/dL (3.5-7.2)
[2023-05-31] MEDS ORDERED: LORazepam 2 MG/ML VIAL IV ONE (06:53)
[2023-05-31] MEDS ORDERED: WATER FOR INJ,STERILE 10 ML IM PRN (06:53)
[2023-05-31] MEDS ORDERED: ZIPRASIDONE MESYLA 20 MG/VIAL IM ONE (06:53)
[2023-05-31 07:40] VITALS: TEMP 98.6
[2023-05-31 07:44] VITALS: BP 122/66; O2SAT 96
--- NOTE | 2023-05-31 08:10 | P.DS ---
Discharge Date: 05/31/23 Disposition: AMA-LEFT AGAINST MEDICAL ADVIC Discharge Condition: FAIR Brief History of Present Illness: Pt is a 48-year-old male with a past medical history of bipolar, CVA, hypertension, Crohn's disease, schizophrenia, antiphospholipid antibody syndrome, restless leg, presents to the emergency room with heat exhaustion. He reports exposure to the heat today. He reports hallucinations, muscle cramps, that started today. He denies nausea vomiting diarrhea shortness of breath chest pain dizziness anemia. He reports of history of bipolar mild hallucination during acute dehydration episode improving. He denies suicidal homicidal ideations. Plan to admit for acute renal failure with hyperkalemia, EKG with peaked T waves, schizophrenia with paranoia, bipolar, heat exhaustion, leukocytosis. Laboratory evaluation WBCs 22.40, left shift 86.7, hyponatremia sodium 131, hyperkalemia 5.7, acute renal failure BUN 38 creatinine 3.24, elevated CK4 21, UDS, UA pending, Hospital Course: Was notified by the nursing staff that patient was wanting to leave. They told me patient was oriented to person place and time. Patient was not suicidal or homicidal. Patient had not been able to take his medicines. He was having some hallucinations and he was also walking throughout the nurses station wanting to leave and becoming agitated. Since patient was not suicidal or homicidal and not a danger to himself or others at this point we decided to go ahead and let him leave AGAINST MEDICAL ADVICE. Patient has ordered orientation questions without any difficulty. Patient is safe to discharge AGAINST MEDICAL ADVICE. Vital Signs/Physical Exam: Temp Pulse Resp BP Pulse Ox 98.6 F 89 18 122/66 96 05/31/23 07:40 05/31/23 07:43 05/31/23 07:43 05/31/23 07:43 05/31/23 07:40 General: Alert, In no apparent distress, Oriented x3 Other Physical/Emotional Findings: moderate anxiety; denies SI; Homocidal ideations Laboratory Data at Discharge: WBC 12.20 thou/uL (4.3-10.9) H 05/31/23 04:20 Hgb 15.0 g/dL (13.6-17.9) D 05/31/23 04:20 Hct 44.2 % (39.6-49.0) 05/31/23 04:20 Plt Count 285 thou/uL (152-406) 05/31/23 04:20 PT 25.3 SECONDS (9.5-12.5) H 05/30/23 15:33 INR 2.30 05/30/23 15:33 APTT 39.2 SECONDS (24.3-36.9) H 05/30/23 15:33 Sodium 136 mEq/L (136-145) 05/31/23 04:20 Potassium 4.1 mEq/L (3.5-5.1) 05/31/23 04:20 BUN 36 mg/dL (7-18) H 05/31/23 04:20 Creatinine 1.38 mg/dL (0.70-1.30) H 05/31/23 04:20 Glucose 92 mg/dL (74-106) 05/31/23 04:20 Uric Acid 7.9 mg/dL (3.5-7.2) H 05/31/23 04:20 Phosphorus Cancelled 05/30/23 17:17 Magnesium 2.0 mg/dL (1.6-2.4) 05/31/23 04:20 Total Bilirubin 0.6 mg/dL (0.2-1.0) 05/31/23 04:20 AST 52 U/L (15-37) H 05/31/23 04:20 ALT 22 U/L (16-61) 05/31/23 04:20 Alkaline Phosphatase 67 U/L (45-117) D 05/31/23 04:20 Physician Discharge Instructions: Pt left AMA Followup: Frederick Arenas DO [Primary Care Provider] - Time spent managing pt's care (in minutes): 5
[2023-05-31] MEDS ORDERED: CEFTRIAXONE 1,000 MG in NA CHLORIDE 0.9% 50 ML IVPB SCH (09:00)
--- NOTE | 2023-05-31 15:22 | EKG ---
Test Date: 2023-05-30 Test Time: 15:58:00 Multi Sensor Operator: MEASUREMENT RESULTS: Intervals: Rate: 96 ND: 132 QRSD: 80 QT: 362 QTc: 457 [place]: P: 70 ND: 132 QRS: 104 T: 73 INTERPRETIVE STATEMENTS: Normal sinus rhythm Right atrial enlargement Rightward axis Pulmonary disease pattern Abnormal ECG Compared to ECG 12/30/2019 02:21:55 Atrial abnormality now present Right-axis deviation now present Electronically Signed On 05-31-23 15:20:44 CDT by Mark Gamez
== END 2023-05-31 07:36 | disposition left against medical advice (07) ==
LOC: ER 14:48 → ERHOLD 19:12 → 3RD-ICU 05-31 06:08
PROVIDERS: ADMIT Internal Medicine; ATTEND Internal Medicine
DX: N17.9 Acute kidney failure, unspecified (principal); E87.5 Hyperkalemia; X30.XXXA Exposure to excessive natural heat, initial encounter; Y93.9 Activity, unspecified; Y92.9 Unspecified place or not applicable; Y99.9 Unspecified external cause status; D72.829 Elevated white blood cell count, unspecified; F31.9 Bipolar disorder, unspecified; F20.9 Schizophrenia, unspecified; Z86.73 Personal history of transient ischemic attack (TIA), and cerebral infarction without residual deficits; G25.81 Restless legs syndrome; K50.90 Crohn's disease, unspecified, without complications; D68.61 Antiphospholipid syndrome; Z53.29 Procedure and treatment not carried out because of patient's decision for other reasons
CPT/HCPCS: 96361; 93005; 87040 ×2; 85025 ×2; 80048 ×2; 36415; 82140; 83735 ×3; 82550 ×2; 84100; 85610; 80076; 84550; 83605; 85730; 84484; 80053; 83880; 71250; 74176; 71045; 96375; 96374; 99285; 80143; 80179; 82077; J1644; J3486; J7030 ×4; J0696; G0378

== ENCOUNTER 2023-05-31 22:15 | Emergency (ER) | payer OTHER ==
--- OUTSIDE RECORDS SUMMARY | 2023-05-31 22:22 | XMS REPORT | Continuity of Care Document ---
:1975 Author Organization [facility] t Address [address] [facility] [address] [place] [address] Care Team Providers Name Role Phone Frederick Arenas Attending Clinician Unavailable Francesca Day Attending Clinician Unavailable Narda Alexander Attending Clinician Unavailable Payers Payer Name Policy Type Policy Number Effective Date Expiration Date S vishce MEDICAID MC [id number] 2013 [facility] [facility] MEDICARE MB [id number] [facility] MEDICAID MC [id number] 2013 [facility]:[address] [facility] MEDICARE MB [id number] [facility] MEDICARE MB [id number] [facility] MEDICAID MC [id number] 2013 [facility]:[address] [facility] MEDICARE MB [id number] [facility] - [facility] MEDICAID MC [id number] 2013 [facility] [facility] MEDICAID MC [id number] [facility] MEDICARE MB [id number] [facility] Problems Condition Condition Condition Status Onset Resolution Last Treating Co mments Source Name Details Category Date Date Treatment Clinician Date [id number] Mixed Problem Common hyperlipid Spirit emia - [facility] [id number] Current Problem Common smoker [facility] Ulcer Ulcer Problem Common [facility] Memory Memory Problem Common problem problem [facility] Bipolar Bipolar Problem Common disorder disorder [facility] [id number] Bipolar I, Problem Com mon single Spirit manic - [facility] episode, [facility] psychotic [facility] behavior [id number] Crohn's Problem Commo n disease in Spirit remission [facility] [id number] Gastroesop Problem Co mmon hageal [facility] reflux - [facility], [facility] s present [id number] Seasonal Problem Comm on allergic Spirit rhinitis, - [facility] unspecifie [facility] Hypertensi HTN Problem Commo n on (hypertens Spirit ion) [facility] Stroke Stroke Problem Common [facility] Anxiety Anxiety Problem Common [facility] Allergic Allergic Problem Commo n rhinitis rhinitis [facility] Allergies, Adverse Reactions, Alerts This patient has no known allergies or adverse reactions. Social History Social Habit Start Date Stop Date Quantity Comments Source History of Tobacco Current Smoker Co mmon [facility] - [facility] Use [facility] Sex Assigned At Com mon [facility] Smoking Status Start Date Stop Date Source Current Smoker 2022-07-26 00:00:00 [facility] Former Smoker 2021-06-27 00:00:00 2021-06-27 00:00:00 [facility] Medications Ordered Filled Start Stop Current Ordering [...] 2020- No Na Alexander 2 sprays Common Malinta Malinta 11-19 in each Spiri t 00:00: 00:00 nostril - CHI 00 :00 [facility] Thorazine Thorazine Yes Na Alexander not Co mmon defined [facility] HydrOXYzine HydrOXYzine Yes Na Alexander 1 tablet Common HCl HCl as needed [facility] Ziprasidone Ziprasidone Yes Na Alexander 1 capsule Common HCl HCl with food [facility] Sulfasalazi Sulfasalazi Yes Na Alexander 1 tablet Common ne ne [facility] Ziprasidone Ziprasidone Yes Na Alexander 1 capsule Common HCl HCl with food [facility] Divalproex Divalproex Yes Na Alexander 1 tablet Common Sodium Sodium [facility] Clonazepam Clonazepam Yes Na Alexander 1 tablet [facility] Pentasa Pentasa Yes Na Alexander 2 capsules [facility] Aspir-81 Aspir-81 Yes Na Alexander 1 tablet [facility] Coumadin Coumadin Yes Na Alexander 1 tablet [facility] baclofen baclofen Yes Na Alexander 1/2 tab C ommon [facility] Atenolol Atenolol Yes Na Alexander 1 tablet [facility] Warfarin Warfarin Yes Na Alexander 1 tablet Common Sodium Sodium [facility] PredniSONE PredniSONE Yes Na Alexander 1 tablet [facility] Ziprasidone Ziprasidone No 1{capsu BID Ziprasidon HCl [...] Comments Source height 2022-07-26 11:00:00 67.00 [in_i] [facility] weight 2022-07-26 11:00:00 151.6 [lb_av] [facility] temperature 2022-07-26 11:00:00 98.4 [degF] [facility] bmi 2022-07-26 11:00:00 23.74 kg/m2 [facility] oximetry 2022-07-26 11:00:00 96 % [facility] respiratory rate 2022-07-26 11:00:00 16 /min Comm on [facility] blood pressure 2022-07-26 11:00:00 131 mm[Hg] [facility] systolic [facility] blood pressure 2022-07-26 11:00:00 88 mm[Hg] [facility] diastolic [facility] height 2022-07-26 10:40:00 67.00 [in_i] [facility] weight 2022-07-26 10:40:00 151.6 [lb_av] [facility] temperature 2022-07-26 10:40:00 98.4 [degF] [facility] bmi 2022-07-26 10:40:00 23.74 kg/m2 [facility] oximetry 2022-07-26 10:40:00 96 % [facility] respiratory rate 2022-07-26 10:40:00 16 /min Comm on [facility] blood pressure 2022-07-26 10:40:00 131 mm[Hg] Common [facility] - systolic [facility] blood pressure 2022-07-26 10:40:00 88 mm[Hg] Common [facility] - diastolic [facility] height 2021-12-07 14:40:00 67.00 [in_i] Common [facility] weight 2021-12-07 14:40:00 164.6 [lb_av] Common [facility] temperature 2021-12-07 14:40:00 97.1 [degF] Common [facility] bmi 2021-12-07 14:40:00 25.78 kg/m2 [facility] oximetry 2021-12-07 14:40:00 99 % [facility] respiratory rate 2021-12-07 14:40:00 18 /min Comm on [facility] blood pressure 2021-12-07 14:40:00 128 mm[Hg] Common [facility] - systolic [facility] blood pressure 2021-12-07 14:40:00 84 mm[Hg] Common [facility] - diastolic [facility] height 2021-06-09 14:00:00 67.00 [in_i] [facility] weight 2021-06-09 14:00:00 150.0 [lb_av] [facility] bmi 2021-06-09 14:00:00 23.49 kg/m2 [facility] [place] [facility] height 2021-05-10 12:40:00 67.00 [in_i] Common [facility] [place] [facility] weight 2021-05-10 12:40:00 140 [lb_av] [facility] bmi 2021-05-10 12:40:00 21.92 kg/m2 [facility] [place] [facility] height 2021-04-06 10:00:00 67.00 [in_i] [facility] 2021-04-06 10:00:00 167.4 [lb_av] Common [facility] temperature 2021-04-06 10:00:00 97.2 [degF] [facility] bmi 2021-04-06 10:00:00 26.22 kg/m2 Common [facility] oximetry 2021-04-06 10:00:00 96 % Common [facility] respiratory rate 2021-04-06 10:00:00 16 /min Comm on [facility] blood pressure 2021-04-06 10:00:00 126 mm[Hg] Common [facility] systolic [facility] blood pressure 2021-04-06 10:00:00 80 mm[Hg] Common [facility] diastolic [facility] Procedures This patient has no known procedures. Encounters Start End Encounter Admission Attending Care Care Encounter Source Date/Time Date/Time Type Type Clinicians Facility Department ID 2023-05-06 Outpatient Arenas, STLMLC STLMLC [id number] Common 10:01:00 [facility] [address] [facility] 2023-04-03 Outpatient STLMLC STLMLC [id number] Common 10:27:00 11449 [facility] 2023-02-04 Outpatient Barb, STLMLC STLMLC [id number] Common 15:06:01 Francesca 97324 [facility] 2022-12-06 Outpatient Barb, STLMLC STLMLC [id number] Common 13:35:01 Francesca 80247 [facility] 2022-07-26 Outpatient Alexander, Na STLMLC STLMLC [id number] 2 Common 13:21:01 [facility] 2022-03-09 Outpatient Alexander, Na STLMLC STLMLC [id number] 2 Common 16:40:01 [facility] 2022-03-07 Outpatient Alexander, Na STLMLC STLMLC [id number] 2 Common 09:38:00 [facility] 2021-12-26 Outpatient Alexander, Na STLMLC STLMLC [id number] 2 Common 11:44:02 [facility] 2021-12-21 Outpatient Alexander, Na STLMLC STLMLC [id number] 2 Common 15:23:00 [facility] 2021-12-07 Outpatient Alexander, Na STLMLC STLMLC [id number] 2 Common 16:13:01 [facility] 2021-12-01 Outpatient Alexander, Na STLMLC STLMLC [id number] 2 Common 11:52:01 [facility] 2021-11-01 Outpatient Alexander, Na STLMLC STLMLC [id number] 2 Common 13:45:31 [facility] 2021-11-01 Outpatient Alexander, Na STLMLC STLMLC [id number] 2 Common 13:33:37 [id number] [facility] 2021-11-01 Outpatient Alexander, Na STLMLC STLMLC [id number] 2 Common 13:22:39 88571 [facility] 2021-11-01 Outpatient Alexander, Na STLMLC STLMLC [id number] 2 Common 12:51:22 71137 [facility] 2021-11-01 Outpatient Alexander, Na STLMLC STLMLC [id number] 2 Common 11:56:05 [id number] [facility] 2021-11-01 Outpatient Alexander, Na STLMLC STLMLC [id number] 2 Common 11:55:43 31846 [facility] 2021-11-01 Outpatient Alexander, Na STLMLC STLMLC [id number] 2 Common 11:19:35 [id number] [facility] 2021-11-01 Outpatient Alexander, Na STLMLC STLMLC [id number] 2 Common 11:17:04 [id number] [facility] 2022-07-27 2022-07-27 (TEL) STLMLC STLMLC [id number] Co mmon 00:00:00 00:00:00 [facility] 2022-07-26 2022-07-26 SUB ANNUAL STLMLC STLMLC [id number] Common 00:00:00 00:00:00 MCR [facility] WELLNESS - CHI VISIT [facility] 2022-07-26 2022-07-26 OFFICE STLMLC STLMLC [id number] Co mmon 00:00:00 00:00:00 VISIT EST Spir it PT LEVEL 3 - CHI [facility] 2022-07-12 2022-07-12 (TEL) STLMLC STLMLC [id number] Co mmon 00:00:00 00:00:00 [facility] 2022-03-21 2022-03-21 (TEL) STLMLC STLMLC [id number] Co mmon 00:00:00 00:00:00 [facility] 2022-03-14 2022-03-14 (TEL) STLMLC STLMLC [id number] Co mmon 00:00:00 00:00:00 [facility] 2022-03-09 2022-03-09 OL DIG E/M STLMLC STLMLC [id number] Common 00:00:00 00:00:00 C 11-20 Spir it MIN - CHI [facility] 2022-01-12 2022-01-12 (TEL) STLMLC STLMLC [id number] Co mmon 00:00:00 00:00:00 [facility] 2021-12-13 2021-12-13 (TEL) STLMLC STLMLC [id number] Co mmon 00:00:00 00:00:00 [facility] 2021-12-07 2021-12-07 OFFICE STLMLC STLMLC [id number] Co mmon 00:00:00 00:00:00 VISIT Spirit ESTAB PT - CHI LEVEL 4 [facility] 2021-06-09 2021-06-09 SUB ANNUAL STLMLC STLMLC [id number] Common 00:00:00 00:00:00 MCR Spirit WELLNESS - CHI VISIT [facility] 2021-05-11 2021-05-11 (TEL) STLMLC STLMLC [id number] Co mmon 00:00:00 00:00:00 [facility] 2021-05-10 2021-05-10 OFFICE STLMLC STLMLC [id number] Co mmon 00:00:00 00:00:00 VISIT EST Spir it PT LEVEL 3 [facility] 2021-04-28 2021-04-28 (TEL) STLMLC STLMLC [id number] Co mmon 00:00:00 00:00:00 [facility] 2021-04-06 2021-04-06 OFFICE STLMLC STLMLC [id number] Co mmon 00:00:00 00:00:00 VISIT Spirit ESTAB PT - CHI LEVEL 4 [facility] 2021-01-18 2021-01-18 Outpatient STLMLC STLMLC [id number] Common 00:00:00 00:00:00 [facility] 2021-01-11 2021-01-11 Outpatient STLMLC STLMLC [id number] Common 00:00:00 00:00:00 [facility] 2020-11-18 2020-11-18 Outpatient STLMLC STLMLC [id number] Common 00:00:00 00:00:00 [facility] 2020-07-25 2020-07-25 Outpatient STLMLC STLMLC [id number] Common 00:00:00 00:00:00 [facility] 2020-07-11 2020-07-11 Outpatient STLMLC STLMLC [id number] Common 00:00:00 00:00:00 [facility] 2020-07-06 2020-07-06 Outpatient STLMLC STLMLC [id number] Common 00:00:00 00:00:00 [facility] 2020-03-16 2020-03-16 [facility] [id number] Common 10:43:00 10:43:[address] [facility] 2020-02-12 2020-02-12 Out[facility] [id number] Common 14:05:00 14:05:[address] [facility] 2020-02-01 2020-02-01 Out[facility] [id number] Common 14:44:00 14:44:[address] [place] [address] [facility] 2020-01-25 2020-01-25 Outpatient Sarah Smitht 30 [id number] Common 08:57:00 08:57:00 [place] [address] [facility] 2020-01-19 2020-01-19 Outpatient Sarah Smitht 30 [id number] Common 15:41:00 15:41:00 [place] [address] [facility] 2020-01-12 2020-01-12 Outpatient Sarah Smitht 30 [id number] Common 13:40:00 13:40:00 [place] [address] [facility] 2020-01-11 2020-01-11 Outpatient Sarah Smitht 30 [id number] Common 14:19:00 14:19:00 [address] [place] [address] [facility] Results Test Description Test Time Test Comments [...] mg/dL See_Comment H [Automated message] The system 6956-6) which generated this result transmitted ref erence [...] interpret this result as normal/abnormal. Iron and [id number] 00:00:00 Test Item Value Reference Range Interpretation Comments Iron Bind.Cap.(TIBC) 573 ug/dL See_Comment HH [Autom ated message] (test code = 2500-7) The s tem which generated this result transmitted ref erence range: 250-450 ug/dL. The reference r jose was not used to interpret this result as normal/abnor mal. UIBC (test code = 527 ug/dL See_Comment H [Automate d message] 6111-5) The system ic h generated this result transmitted ref erence range: 111-343 ug/dL. The reference r jose was not used to interpret this result as normal/abnor mal. Iron (test code = 46 ug/dL See_Comment [Automate d message] 2268-4) The system [facility] h generated this result transmitted ref erence range: 38-169 u g/dL. The reference r jose was not used to interpret this result as normal/abnor mal. Iron Saturation (test 8 % See_Comment LL [Auto mated message] code = 9032-3) The system [employer] generated this result transmitted ref erence range: 15-55 %. The reference range was not used to int erpret this result as normal/abnormal . LDL Cholesterol (Direct)2022-07-26 00:00:00 Test Item Value Reference Range Interpretation Comments LDL Chol. (Direct) 137 mg/dL See_Comment H [Automat ed message] The (test code = system which ge nerated 69055-3) this result tra nsmitted reference range : 0-99 mg/dL. The refe rence range was not u sed to interpret this result as normal/abnormal . Prothrombin Time (PT) INR [id number] 00:00:00 Test Item Value Reference Range Interpretation Comments INR (test code = 1.3 0.9-1.2 H 6301-6) Prothrombin Time (test 13.5 sec See_Comment H [Aut omated message] code = 5902-2) The system [facility] generated this result transmitted ref erence range: 9.1-12.0 sec. The reference r jose was not used to interpret this result as normal/abnor mal. Comp. Metabolic Panel (14) (CMP)2022-07-26 00:00:00 Test Item Value Reference Range Interpretation Comments Glucose (test code = 97 mg/dL See_Comment [Autom ated message] 3305-7) The system [employer] generated this result transmitted ref erence range: 70-99 mg /dL. The reference r jose was not used to interpret this result as normal/abnor mal. BUN (test code = 10 mg/dL See_Comment [Automated message] 3094-0) The system [employer] generated this result transmitted ref erence range: 6-24 mg/ dL. The reference r jose was not used to interpret this result as normal/abnor mal. Creatinine (test code 0.92 mg/dL See_Comment [Auto mated message] = 2160-0) The system [employer] generated this result transmitted ref erence range: 0.76-1.2 7 mg/dL. The refe rence range was not u sed to interpret this result as normal/abnor mal. BUN/Creatinine Ratio 11 9-20 (test code = 3097-3) Sodium (test code = 139 mmol/L See_Comment [Automa miguel message] 8171-2) The system [employer] generated this result transmitted ref erence range: 134-144 mmol/L. The ref erence range was not u sed to interpret this result as normal/abnor mal. Potassium (test code = 4.6 mmol/L See_Comment [Aut omated message] 0102-3) The system [employer] generated this result transmitted ref erence range: 3.5-5.2 mmol/L. The ref erence range was not u sed to interpret this result as normal/abnor mal. Chloride (test code = 99 mmol/L See_Comment [Auto mated message] 6415-0) The system [employer] generated this result transmitted ref erence range: 96-106 m mol/L. The reference r jose was not used to interpret this result as normal/abnor mal. Carbon Dioxide, Total 21 mmol/L See_Comment [Auto mated message] (test code = 2028-06) The sys tem which generated this result transmitted ref erence range: 20-29 mm ol/L. The reference r jose was not used to interpret this result as normal/abnor mal. Calcium (test code = 9.6 mg/dL See_Comment [Autom ated message] 47711-2) The system [facility] generated this result transmitted ref erence range: 8.7-10.2 mg/dL. The refe rence range was not u sed to interpret this result as normal/abnor mal. Protein, Total (test 7.6 g/dL See_Comment [Autom ated message] code = 2885-2) The system [facility] generated this result transmitted ref erence range: 6.0-8.5 g/dL. The reference r jose was not used to interpret this result as normal/abnor mal. Albumin (test code = 5.4 g/dL See_Comment H [Autom ated message] 1751-7) The system [facility] generated this result transmitted ref erence range: 4.0-5.0 g/dL. The reference r jose was not used to interpret this result as normal/abnor mal. Globulin, Total (test 2.2 g/dL See_Comment [Auto mated message] code = 18207-4) The system [facility] generated this result transmitted ref erence range: 1.5-4.5 g/dL. The reference r jose was not used to interpret this result as normal/abnor mal. A/G Ratio (test code = 2.5 1.2-2.2 H 1759-0) Bilirubin, Total (test 0.3 mg/dL See_Comment [Aut omated message] code = 1975-2) The system [facility] generated this result transmitted ref erence range: 0.0-1.2 mg/dL. The reference r jose was not used to interpret this result as normal/abnor mal. Alkaline Phosphatase 80 IU/L See_Comment [Autom ated message] (test code = 6768-6) The [facility] tem which generated this result transmitted ref erence range: 44-121 I U/L. The reference r jose was not used to interpret this result as normal/abnor mal. AST (SGOT) (test code 39 IU/L See_Comment [Auto mated message] = 1920-8) The system [facility] generated this result transmitted ref erence range: 0-40 IU/ L. The reference range was not used to int erpret this result as normal/abnormal . ALT (SGPT) (test code 16 IU/L See_Comment [Auto mated message] = 0842-6) The system whic h generated this result transmitted ref erence range: 0-44 IU/ L. The reference range was not used to int erpret this result as normal/abnormal . CBC With Differential/[id number] 00:00:00 Test Item Value Reference Range Interpretation Comments WBC (test code = 7.9 x10E3/uL See_Comment [Automated 6004-2) message] The sy stem which generated this result transmitted reference range : 3.4-10.8 x10E3/ uL. The reference r jose was not used to interpret this result as normal/abnormal . RBC (test code = 5.29 x10E6/uL See_Comment [Automate d 569-8) message] The sy stem which generated this result transmitted reference range : 4.14-5.80 x10E6 /uL. The reference r jose was not used to interpret this result as normal/abnormal . Hemoglobin (test code 16.8 g/dL See_Comment [Auto mated = 068-7) message] The sy stem which generated this result transmitted reference range : 13.0-17.7 g/dL. The reference range was not used to interpret this result as normal/abnormal . Hematocrit (test code 50.2 % See_Comment [Auto mated = 6034-3) message] The sy stem which generated this result transmitted reference range : 37.5-51.0 %. Th e reference range was not used to interpret this result as normal/abnormal . MCV (test code = 95 fL See_Comment [Automated 087-2) message] The sy stem which generated this result transmitted reference range : 79-97 fL. The reference range was not used to interpret this result as normal/abnormal . MCH (test code = 31.8 pg See_Comment [Automated 875-6) message] The sy stem which generated this result transmitted reference range : 26.6-33.0 pg. T he reference range was not used to interpret this result as normal/abnormal . MCHC (test code = 33.5 g/dL See_Comment [Automate d 279-4) message] The sy stem which generated this [...] % Not Estab. % (test code = 91801-8) Immature Grans (Abs) 0.0 x10E3/uL See_Comment [Autom ated (test code = 65363-9) messag e] The system which generated this result transmitted reference range : 0.0-0.1 x10E3/u L. The reference r jose was not used to interpret this result as normal/abnormal . NRBC (test code = 47403-5) Hematology Comments: (test code = 98753-7) Lipid Panel w/ Chol/HDL [id number] 00:00:00 Test Item Value Reference Range Interpretation Comments Cholesterol, Total (test code = 2093-3) 193 100-199 Triglycerides (test code = 2571-8) 184 0-149 HDL Cholesterol (test code = 2085-9) 46 >39 T. Chol/HDL Ratio (test code = 9830-1) 4.2 0.0-5.0 PSA, Serum (Serial Monitor)2021-12-07 00:00:00 Test Item Value Reference Range Interpretation Comments Prostate Specific Ag (test code = 0.6 0.0-4.0 2857-1) Iron and [id number] 00:00:00 Test Item Value Reference Range Interpretation Comments Iron Bind.Cap.(TIBC) (test code = 465 248-328 7838-7) UIBC (test code = 2501-5) 416 111-343 Iron (test code = 2498-4) 49 38-169 Iron Saturation (test code = 2502-3) 11 15-55 LDL Cholesterol (Direct)2021-12-07 00:00:00 Test Item Value Reference Range Interpretation Comments LDL Chol. (Direct) (test code = 115 0-99 07919-7) Prothrombin Time (PT) INR [id number] 00:00:00 Test Item Value Reference Range Interpretation Comments INR (test code = 6301-6) 1.6 0.9-1.2 Prothrombin Time (test code = 5902-2) 16.1 9.1-12.0 Comp. Metabolic Panel (14) (CMP)2021-12-07 00:00:00 Test Item Value Reference Range Interpretation [...] 96-106 Carbon Dioxide, Total (test code = -2027-) Calcium (test code = 61223-8) 8.2 8.7-10.2 Protein, Total (test code = 2885-2) 6.5 6.0-8.5 Albumin (test code = 1751-7) 4.4 4.0-5.0 Globulin, Total (test code = 24122-6) 2.1 1.5-4.5 A/G Ratio (test code = 1759-0) 2.1 1.2-2.2 Bilirubin, Total (test code = 1975-2) <0.2 0.0-1.2 Alkaline Phosphatase (test code = 112 44-121 6768-6) AST (SGOT) (test code = 1920-8) 36 0-40 ALT (SGPT) (test code = 1742-6) 13 0-44 CBC With Differential/[id number] 00:00:00 Test Item Value Reference Range Interpretation [...] Granulocytes (test code = 0 Not Estab. 52126-5) Immature Grans (Abs) (test code = 0.0 0.0-0.1 45748-1) NRBC (test code = 20088-6) Hematology Comments: (test code = 59337-9)
[2023-06-01] MEDS ORDERED: LORazepam 2 MG/ML VIAL ONE ×2 (01:02→02:13)
[2023-06-01] MEDS ORDERED: ZIPRASIDONE MESYLA 20 MG/VIAL IM ONE (01:03)
[2023-06-01] MEDS ORDERED: NA CHLORIDE 0.9% 1,000 ML ONE ×2 (01:03→02:13)
[2023-06-01] MEDS ORDERED: WATER FOR INJ,STERILE 10 ML ONE (01:03)
[2023-06-01 01:25] LABS: Absolute Lymphocytes (CBC) 1.4 K/uL (0.7-4.9); Hematocrit 41.7 % (39.6-49.0); Lymphocytes % 8.6 % (15.3-44.8); MCV 93.2 fL (80-100); MPV 7.3 fL (7.6-11.3); Platelets 288 thou/uL (152-406); RBC Red Blood Cell Count 4.47 M/uL (4.33-5.43)
[2023-06-01 02:07] LABS: ALT/SGPT 32 U/L (16-61); AST/SGOT 78 U/L (15-37); Albumin 4.5 g/dL (3.4-5.0); Alkaline Phosphatase 83 U/L (45-117); BUN Blood Urea Nitrogen 36 mg/dL (7-18); Bicarbonate 21 mEq/L (21-32); Bilirubin Direct 0.1 mg/dL (0-0.2); Bilirubin Indirect, Calculated 0.4 mg/dL (0.2-0.8); Bilirubin Total 0.5 mg/dL (0.2-1.0); Glomerular Filtration Rate 77 ml/min (=/>90); Glucose Level 83 mg/dL (74-106); Potassium 3.8 mEq/L (3.5-5.1); Protein, Total 7.8 g/dL (6.4-8.2); Sodium Level 133 mEq/L (136-145)
[2023-06-01 02:14] LABS: Protime INR 2.32
[2023-06-01 04:04] LABS: Barbiturates NEGATIVE (NEGATIVE); Benzodiazepines NEGATIVE (NEGATIVE); Cocaine NEGATIVE (NEGATIVE); METHAMPHETAM POSITIVE (NEGATIVE); Methadone NEGATIVE (NEGATIVE); Opiates NEGATIVE (NEGATIVE); Phencyclidine NEGATIVE (NEGATIVE); THC Cannibis POSITIVE (NEGATIVE)
[2023-06-01 04:05] LABS: Specific Gravity 1.024 (1.005-1.030); Urine Bacteria None Seen /HPF (<20); Urine Bilirubin NEGATIVE (Negative); Urine Blood Negative (Negative); Urine Clarity Turbid (Clear); Urine Color Light-Yellow (Yellow); Urine Glucose NEGATIVE (Negative); Urine Mucus Slight /HPF (None Seen); Urine Protein TRACE (Negative); Urine RBC <5 /HPF (None Seen); Urine Urobilinogen Normal (Normal); Urine pH 5.5 (5.0-7.0)
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
[2023-06-01] MEDS ORDERED: CEFTRIAXONE 1000 MG/VIAL ONE (07:41)
[2023-06-01] MEDS ORDERED: CEPHALEXIN 250 MG CAP ONE ×2 (07:41)
[2023-06-01 11:24] VITALS: O2SAT 100
[2023-06-01 11:30] VITALS: BP 111/71
--- NOTE | 2023-06-02 15:07 | EKG ---
Test Date: 2023-06-01 Test Time: 01:22:32 Neonatal Social Worker: RAFFAELE MEASUREMENT RESULTS: Intervals: Rate: 101 MD: 138 QRSD: 82 QT: 374 QTc: 484 [place]: P: 50 MD: 138 QRS: 86 T: 64 INTERPRETIVE STATEMENTS: Sinus tachycardia Otherwise normal ECG Compared to ECG 05/30/2023 15:58:00 Sinus rhythm no longer present Atrial abnormality no longer present Right-axis deviation no longer present Electronically Signed On 06-02-23 15:05:28 CDT by Mark Gamez
== END 2023-06-01 12:03 | disposition home or self-care (01) ==
LOC: ER 22:15
DX: N39.0 Urinary tract infection, site not specified (principal); F31.9 Bipolar disorder, unspecified; I10 Essential (primary) hypertension; F17.220 Nicotine dependence, chewing tobacco, uncomplicated; Z86.73 Personal history of transient ischemic attack (TIA), and cerebral infarction without residual deficits
CPT/HCPCS: 93005; 87088; 85025; 81001; 87086; 80048; 36415; 85610; 80076; 85730; 80307; 96375; 96372; 96374; 99285; 80143; 80179; 82077; J3486; J7030 ×2; J0696

== ENCOUNTER 2024-04-01 11:25 | Emergency (ER) | payer OTHER ==
--- NOTE | 2024-04-01 12:00 | RAD REPORT ---
EXAM DESCRIPTION: Juan Single View04/01/2024 11:55 am CLINICAL HISTORY: Cough COMPARISON: 2022 FINDINGS: The lungs appear clear of acute infiltrate. The heart is normal size IMPRESSION: No acute abnormalities displayed
--- NOTE | 2024-04-01 12:01 | RAD REPORT ---
EXAM DESCRIPTION: CT - Head Brain Wo Cont - 04/01/2024 11:51 am CLINICAL HISTORY: Dizziness COMPARISON: none TECHNIQUE: Computed axial tomography of the head was obtained. IV contrast was not requested. All CT scans are performed using dose optimization technique as appropriate and may include automated exposure control or mA/KV adjustment according to patient size. FINDINGS: An intracranial bleed is not seen The ventricles are normal in caliber No significant hypodense areas within the brain visualized No extra-axial fluid collection is noted. Fluid within the sinuses/ mastoids is not seen IMPRESSION: No acute intracranial abnormality is seen If patient's symptoms persist MRI of the brain would be recommended
[2024-04-01] MEDS ORDERED: NA CHLORIDE 0.9% 1,000 ML ONE (12:13)
[2024-04-01] MEDS ORDERED: THIAMINE 200 MG/2 ML INJ ONE (12:13)
[2024-04-01 12:15] LABS: Absolute Eosinophils 2.4 K/uL (0-0.5); Absolute Lymphocytes (CBC) 1.7 K/uL (0.7-4.9); Absolute Monocytes 0.4 K/uL (0.1-1.3); Absolute Neutrophil 6.3 K/uL (1.8-8.0); Basophils % 0.4 % (0-1.3); Eosinophils % 21.9 % (0-4.4); Hematocrit 37.9 % (39.6-49.0); Hemoglobin 12.6 g/dL (13.6-17.9); Lymphocytes % 15.8 % (15.3-44.8); MCH 30.1 pg (27.0-35.0); MCHC 33.2 g/dL (32.0-36.0); MCV 90.6 fL (80-100); MPV 6.9 fL (7.6-11.3); Monocytes % 3.9 % (3.3-12.3); Platelets 457 thou/uL (152-406); RBC Red Blood Cell Count 4.18 M/uL (4.33-5.43); Red Cell Distribution Width 18.1 % (12.1-15.2)
[2024-04-01 12:25] LABS: PT Prothrombin Time 12.4 SECONDS (9.4-12.5); PTT, Activated Partial Thromb 31.8 SECONDS (24.3-36.9); Protime INR 1.13
[2024-04-01 12:39] LABS: ALT/SGPT 20 U/L (16-61); AST/SGOT 40 U/L (15-37); Albumin 3.5 g/dL (3.4-5.0); Albumin/Globulin Ratio 1.2 (1.1-1.8); Alkaline Phosphatase 76 U/L (45-117); Anion Gap 8.4 mEq/L (5.0-15.0); BUN Blood Urea Nitrogen 26 mg/dL (7-18); Bicarbonate 24 mEq/L (21-32); Bilirubin Direct < 0.2 mg/dL (0-0.2); Bilirubin Indirect, Calculated 0.1 mg/dL (0.2-0.8); Bilirubin Total 0.3 mg/dL (0.2-1.0); Globulin 2.9 g/dL (2.3-3.5); Glomerular Filtration Rate 89 ml/min (=/>90); Glucose Level 99 mg/dL (74-106); Lipase 24 U/L (13-75); Potassium 3.4 mEq/L (3.5-5.1); Protein, Total 6.4 g/dL (6.4-8.2); Sodium Level 143 mEq/L (136-145)
[2024-04-01 12:47] LABS: Atypical Lymphocytes 1 %; Differential Total Cells Count 100; Eosinophils 20 % (0-3); Lymphocytes 14 % (15-42); Monocytes 3 % (0-10); Segmented Neutrophils 62 % (40-80); White Blood Cell Scan OK (OK)
[2024-04-01 12:48] LABS: Blood Morphology Comment NOT SEEN (NOT SEEN); Platelet Estimate INCR
[2024-04-01] MEDS ORDERED: NA CHLORIDE 0.9% 1,000 ML with MULTIVITAMINS INJ 10 ML, THIAMINE HCL 100 MG, FOLIC ACID... IV SCH (13:00)
[2024-04-01] MEDS ORDERED: POTASSIUM 25 MEQ EFFERV TAB ONE (14:17)
--- NOTE | 2024-04-01 14:20 | EDPHYS ---
Physician Documentation [facility] Name: Karl Hinojosa Age: 49 yrs Sex: Male : 1975 Arrival Date: 04/01/2024 Time: 11:25 Bed 7 Private MD: ED Physician Fawad Seals HPI: 04/01 14:08 This 49 yrs old Male presents to ER via EMS with complaints of homeless, skin howie lesions and ams. 14:08 weakness, ams, living outside. The patient presents with decreased mental status, howie seizure activity. Onset: The symptoms/episode began/occurred just prior to arrival, this morning. Possible causes: CVA or TIA, drug use, alcohol, head injury, low blood sugar, seizure, sepsis, unknown. Associated signs and symptoms: Pertinent positives: confusion, dizziness. Current symptoms: In the emergency department the patient's symptoms have improved, markedly, is more alert. Patient's baseline: Neuro: alert and fully oriented. Historical: - Allergies: 11:47 No Known Allergies; ph - PMHx: 11:47 antiphosphlipid antibody syndrome; Anxiety; Bipolar disorder; Crohn's Disease; CVA; ph Hypertension; restless leg syndrome; Schizophrenia; - Immunization history:: Adult Immunizations unknown. - Infectious Disease History:: Denies. - Social history:: Smoking status: Patient denies any tobacco usage or history of. Patient/guardian denies using alcohol, street drugs. - Family history:: not pertinent. ROS: 14:08 Constitutional: Negative for fever, chills, and weight loss, Eyes: Negative for injury, howie pain, redness, and discharge, ENT: Negative for injury, pain, and discharge, Neck: Negative for injury, pain, and swelling, Cardiovascular: Negative for chest pain, palpitations, and edema, Respiratory: Negative for shortness of breath, cough, wheezing, and pleuritic chest pain, Abdomen/GI: Negative for abdominal pain, nausea, vomiting, diarrhea, and constipation, Back: Negative for injury and pain, : Negative for injury, bleeding, discharge, and swelling, MS/Extremity: Negative for injury and deformity, Skin: Negative for injury, rash, and discoloration, Psych: Negative for depression, anxiety, suicide ideation, homicidal ideation, and hallucinations, Allergy/Immunology: Negative for hives, rash, and allergies, Endocrine: Negative for neck swelling, polydipsia, polyuria, polyphagia, and marked weight changes, Hematologic/Lymphatic: Negative for swollen nodes, abnormal bleeding, and unusual bruising, 14:08 Neuro: Positive for altered mental status, weakness, Exam: 14:08 Constitutional: This is a well developed, well nourished patient who is awake, alert, howie and in no acute distress. Head/Face: Normocephalic, atraumatic. Eyes: Pupils equal round and reactive to light, extra-ocular motions intact. Lids and lashes normal. Conjunctiva and sclera are non-icteric and not injected. Cornea within normal limits. Periorbital areas with no swelling, redness, or edema. ENT: Nares patent. No nasal discharge, no septal abnormalities noted. Tympanic membranes are normal and external auditory canals are clear. Oropharynx with no redness, swelling, or masses, exudates, or evidence of obstruction, uvula midline. Mucous membranes moist. Neck: Trachea midline, no thyromegaly or masses palpated, and no cervical lymphadenopathy. Supple, full range of motion without nuchal rigidity, or vertebral point tenderness. No Meningismus. Chest/axilla: Normal chest wall appearance and motion. Nontender with no deformity. No lesions are appreciated. Cardiovascular: Regular rate and rhythm with a normal S1 and S2. No gallops, murmurs, or rubs. Normal PMI, no JVD. No pulse deficits. Respiratory: Lungs have equal breath sounds bilaterally, clear to auscultation and percussion. No rales, rhonchi or wheezes noted. No increased work of breathing, no retractions or nasal flaring. Abdomen/GI: Soft, non-tender, with normal bowel sounds. No distension or tympany. No guarding or rebound. No evidence of tenderness throughout. Back: No spinal tenderness. No costovertebral tenderness. Full range of motion. Male : Normal genitalia with no discharge or lesions. MS/ Extremity: Pulses equal, no cyanosis. Neurovascular intact. Full, normal range of motion. Neuro: Awake and alert, GCS 15, oriented to person, place, time, and situation. Cranial nerves II-XII grossly intact. Motor strength 5/5 in all extremities. Sensory grossly intact. Cerebellar exam normal. Normal gait. Psych: Awake, alert, with orientation to person, place and time. Behavior, mood, and affect are within normal limits. 14:08 ECG was reviewed by the Attending Physician. 14:08 Musculoskeletal/extremity: Circulation is intact in all extremities. Sensation intact. Compartment Syndrome exam of affected extremity: is normal. DVT Exam: No signs of deep vein thrombosis. no pain, no swelling, no tenderness, negative Homans' sign noted on exam, no appreciated bluish discoloration, no erythema, no increased warmth, 14:08 Skin: abscess, not appreciated, cellulitis, is not appreciated, induration, is not appreciated, lesion(s), noted, and can be described as flat, located on the chest, right arm, left arm, right leg, left leg, back of left arm, back of right arm, posterior chest, back of left leg and back of right leg, Turgor: is good, Vital Signs: 11:46 BP 146 / 100; Pulse 77; Resp 18; Temp 97.5; Pulse Ox 100% on R/A; Weight 63.5 kg; ph Height 5 ft. 6 in. ; 13:37 BP 146 / 95; Pulse 82; Resp 16; Pulse Ox 100% on R/A; ph 15:08 BP 136 / 97; Pulse 84; Resp 18; Temp 97.5; Pulse Ox 100% on R/A; ph 11:46 Body Mass Index 22.60 (63.50 kg, 167.64 cm) ph MDM: 11:36 Patient medically screened. howie 14:14 Differential Diagnosis altered mental status, sepsis, flu. Differential Diagnosis: CVA, howie electrolyte abnormality, alcohol intoxication, hypoglycemia, intracranial bleed, meningitis, overdose, pneumonia, seizure, sepsis, TIA, UTI, volume depletion. Data reviewed: vital signs, nurses notes, lab test result(s), EKG, radiologic studies, CT scan. Consideration of Admission/Observation Escalation of care including admission/observation considered. I considered the following discharge prescriptions or medication management in the emergency department Medications were administered in the Emergency Department. See MAR. Independent interpretation of the following test(s) in the Emergency Department EKG: See my EKG interpretation above CT Scan: My interpretation is ct head neg. Test considered but Not performed: MRI: no mri brain. Historians other than the Patient: EMS: ems well informed. Care significantly affected by the following chronic conditions: antiphospholipid ab, anxiety, bipolar, crohns, cva, schizophenia. Counseling: I had a detailed discussion with the patient and/or guardian regarding the historical points, exam findings, and any diagnostic results supporting the discharge/admit diagnosis, lab results, radiology results, the need for outpatient follow up, for definitive care, a family practitioner, a psychiatrist. 04/01 11:41 Order name: Acetaminophen; Complete Time: 13:56 [facility] 04/01 11:41 Order name: Basic Metabolic Panel; Complete Time: 13:56 [facility] 04/01 11:41 Order name: CBC with Diff; Complete Time: 13:56 [facility] 04/01 11:41 Order name: ETOH Level; Complete Time: 13:56 [facility] 04/01 11:41 Order name: Hepatic Function; Complete Time: 13:56 [facility] 04/01 11:41 Order name: PT-INR; Complete Time: 13:56 [facility] 04/01 11:41 Order name: Ptt, Activated; Complete Time: 13:56 [facility] 04/01 11:41 Order name: Salicylate; Complete Time: 13:56 [facility] 04/01 11:41 Order name: Lipase; Complete Time: 13:56 [facility] 04/01 12:19 Order name: CBC Smear Scan; Complete Time: 13:56 [facility] 04/01 12:48 Order name: Manual Differential; Complete Time: 13:56 [facility] 04/01 11:41 Order name: Chest Single View XRAY; Complete Time: 13:56 [facility] 04/01 11:41 Order name: CT Head Brain wo Cont; Complete Time: 13:56 [facility] 04/01 11:41 Order name: EKG; Complete Time: 11:42 [facility] 04/01 11:41 Order name: EKG - Nurse/Tech; Complete Time: 12:04 [facility] 04/01 11:41 Order name: IV Saline Lock; Complete Time: 12:04 [facility] 04/01 11:41 Order name: Suicide Screening ([place]); Complete Time: 12:03 [facility] EC:08 Rate is 71 beats/min. Rhythm is regular. QRS [place] is Normal. CO interval is normal. QRS howie interval is normal. QT interval is normal. No Q waves. T waves are Normal. No ST changes noted. Clinical impression: Normal ECG and No evidence of ischemia. Interpreted by me. Reviewed by me. Administered Medications: 12:21 Drug: NS 0.9% IV 1000 ml IV at 1 bolus Per protocol; 1000 mL bolus Route: IV; Rate: 1 ph bolus; Site: left antecubital; 15:07 Follow up: Response: No adverse reaction; IV Status: Completed infusion; IV Intake: ph 1000ml 12:21 Drug: Thiamine IV 100 mg IV at per protocol once Route: IV; Rate: per protocol; Site: ph left antecubital; 15:07 Follow up: Response: No adverse reaction; IV Status: Completed infusion ph 13:03 Drug: Banana Bag - (Multivitamin IV 1 amp, NS 0.9% IV 1000 ml, Thiamine IV 100 mg, ph foLIC Acid IVPB 1 mg) IV at 500 ml/hr once Route: IV; Rate: 500 ml/hr; Site: left antecubital; 15:07 Follow up: Response: No adverse reaction; IV Status: Completed infusion; IV Intake: ph 500ml 14:28 Drug: Potassium PO Effervescent Tablet 50 mEq PO once; dissolve in 4 ounces of water or ph juice Route: PO; 15:07 Follow up: Response: No adverse reaction ph Disposition Summary: 04/01/24 14:19 Discharge Ordered Notes: Location: Home howie Problem: new howie Symptoms: have improved howie Condition: Stable howie Diagnosis - Altered mental status, unspecified howie - Hypokalemia howie - Dehydration howie - Heat exhaustion, unspecified howie - Bipolar disorder, unspecified howie - Schizophrenia, unspecified howie - Dermatitis, unspecified howie Followup: howie - With: Private Physician - When: 2 - 3 days - Reason: Recheck today's complaints, Continuance of care, Re-evaluation by your physician Followup: howie - With: Jeff Briceno MD - When: 2 - 3 days - Reason: Recheck today's complaints, Re-evaluation by your physician Discharge Instructions: - Discharge Summary Sheet howie - Confusion howie - Dehydration, Adult howie - Potassium Content of Foods howie - Schizophrenia howie - Dehydration, Adult, [id number] howie - Hypokalemia howie - Rehydration, Adult howie - Mixed Bipolar Disorder howie - Supporting Someone With Bipolar Disorder howie - Supporting Someone With Schizophrenia howie - Managing Schizophrenia howie Forms: - Medication Reconciliation Form howie - Antibiotic Education howie - Prescription Opioid Use howie - Patient Portal Instructions howie - Leadership Thank You Letter howie Signatures: Dispatcher [employer] Fawad Lu MD MD cha Hall, Patricia RN RN ph Corrections: (The following items were deleted from the chart) 11: 11:42 ACETAMINOPHEN+C.LAB.BRZ ordered. EDMS EDMS 11: 11:42 BASIC METABOLIC PANEL+C.LAB.BRZ ordered. EDMS EDMS 11: 11:42 CBC+H.LAB.BRZ ordered. EDMS EDMS 11: 11:42 ETHANOL+C.LAB.BRZ ordered. EDMS EDMS : 11:42 HEPATIC FUNCTION+C.LAB.BRZ ordered. EDMS EDMS 11: 11:42 PROTIME (+INR)+COAG.LAB.BRZ ordered. EDMS EDMS : 11:42 PTT, ACTIVATED+COAG.LAB.BRZ ordered. EDMS EDMS 11: 11:42 SALICYLATE+C.LAB.BRZ ordered. EDMS EDMS 11:42 11:42 Urinalysis+U.LAB.BRZ ordered. EDMS EDMS 11: 11:42 URINE DRUG SCREEN+UC.LAB.BRZ ordered. EDMS EDMS 11: 11:42 LIPASE+C.LAB.BRZ ordered. EDMS EDMS
--- NOTE | 2024-04-01 14:20 | ER ---
Nurse's Notes [facility] Name: Karl Hinojosa Age: 49 yrs Sex: Male : 1975 Arrival Date: 04/01/2024 Time: 11:25 Bed 7 Private MD: Diagnosis: Altered mental status, unspecified;Hypokalemia;Dehydration;Heat exhaustion, unspecified;Bipolar disorder, unspecified;Schizophrenia, unspecified;Dermatitis, unspecified Presentation: 04/01 11:46 Chief complaint: EMS states: Pt found sleeping behind a hotel, very drowsy for EMS, ph can't stay awake, sores to entire body, VSS, pt reports pain to L side of nose and throat. Coronavirus screen: Vaccine status: Patient reports being unvaccinated. Ebola Screen: No symptoms or risks identified at this time. Initial Sepsis Screen: Does the patient meet any 2 criteria? No. Patient's initial sepsis screen is negative. Does the patient have a suspected source of infection? No. Patient's initial sepsis screen is negative. Risk Assessment: Do you want to hurt yourself or someone else? Patient reports no desire to harm self or others. Onset of symptoms was April 01, 2024. 11:46 Method Of Arrival: EMS: [facility] 11:46 Acuity: JENSEN 3 ph Triage Assessment: 11:48 General: Appears in no apparent distress. Behavior is cooperative, drowsy. Pain: ph Complains of pain in left side of the nose. Neuro: Level of Consciousness is obeys commands, lethargic, Oriented to person, place, situation. Cardiovascular: Capillary refill < 3 seconds in bilateral fingers Patient's skin is warm and dry. Respiratory: Airway is patent Respiratory effort is even, unlabored. GI: No signs and/or symptoms were reported involving the gastrointestinal system. Derm: circular sores/scabs to bilateral arms and bilateral legs. Musculoskeletal: Circulation, motion, and sensation intact. Range of motion: intact in all extremities. Historical: - Allergies: 11:47 No Known Allergies; ph - PMHx: 11:47 antiphosphlipid antibody syndrome; Anxiety; Bipolar disorder; Crohn's Disease; CVA; ph Hypertension; restless leg syndrome; Schizophrenia; - Immunization history:: Adult Immunizations unknown. - Infectious Disease History:: Denies. - Social history:: Smoking status: Patient denies any tobacco usage or history of. Patient/guardian denies using alcohol, street drugs. - Family history:: not pertinent. Screenin:38 [facility] ED Fall Risk Assessment (Adult) History of falling in the last 3 months, ph including since admission No falls in past 3 months (0 pts) Confusion or Disorientation No (0 pts) Intoxicated or Sedated No (0 pts) Impaired Gait No (0 pts) Mobility Assist Device Used No (0 pt) Altered Elimination No (0 pt) Score/Fall Risk Level 0 - 2 = Low Risk Oriented to surroundings, Maintained a safe environment, Hourly rounding (assess needs \T\ fall precautionary measures) done. Abuse screen: Denies threats or abuse. Denies injuries from another. Nutritional screening: No deficits noted. Tuberculosis screening: No symptoms or risk factors identified. Assessment: 11:55 General: SEE TRIAGE ASSESSMENT. ph Vital Signs: 11:46 BP 146 / 100; Pulse 77; Resp 18; Temp 97.5; Pulse Ox 100% on R/A; Weight 63.5 kg; ph Height 5 ft. 6 in. ; 13:37 BP 146 / 95; Pulse 82; Resp 16; Pulse Ox 100% on R/A; ph 15:08 BP 136 / 97; Pulse 84; Resp 18; Temp 97.5; Pulse Ox 100% on R/A; ph 11:46 Body Mass Index 22.60 (63.50 kg, 167.64 cm) ph ED Course: 11:36 Patient arrived in ED. bd 11:36 Fawad Seals MD is Attending Physician. howie 11:46 Marlene Gordillo RN is Primary Nurse. ph 11:47 Triage completed. ph 11:48 Arm band placed on Patient placed in an exam room, on a stretcher, on phototypesetting equipment monitor, ph on pulse oximetry. 11:53 CT Head Brain wo Cont In Process Unspecified. EDMS 11:57 Chest Single View XRAY In Process Unspecified. EDMS 13:30 Maintain EMS IV. Dressing intact. Good blood return noted. Site clean \T\ dry. Gauge \T\ ph site: 20 LAC. 13:38 Patient has correct armband on for positive identification. Bed in low position. Call ph light in reach. Side rails up X2. Pulse ox on. NIBP on. 14:18 Jeff Briceno MD is Referral Physician. [facility] 15:08 No provider procedures requiring assistance completed. IV discontinued, intact, ph bleeding controlled, No redness/swelling at site. Pressure dressing applied. Administered Medications: 12:21 Drug: NS 0.9% IV 1000 ml IV at 1 bolus Per protocol; 1000 mL bolus Route: IV; Rate: 1 ph bolus; Site: left antecubital; 15:07 Follow up: Response: No adverse reaction; IV Status: Completed infusion; IV Intake: ph 1000ml 12:21 Drug: Thiamine IV 100 mg IV at per protocol once Route: IV; Rate: per protocol; Site: ph left antecubital; 15:07 Follow up: Response: No adverse reaction; IV Status: Completed infusion ph 13:03 Drug: Banana Bag - (Multivitamin IV 1 amp, NS 0.9% IV 1000 ml, Thiamine IV 100 mg, ph foLIC Acid IVPB 1 mg) IV at 500 ml/hr once Route: IV; Rate: 500 ml/hr; Site: left antecubital; 15:07 Follow up: Response: No adverse reaction; IV Status: Completed infusion; IV Intake: ph 500ml 14:28 Drug: Potassium PO Effervescent Tablet 50 mEq PO once; dissolve in 4 ounces of water or ph juice Route: PO; 15:07 Follow up: Response: No adverse reaction ph Medication: 13:38 VIS not applicable for this client. ph Intake: 15:07 IV: 500ml; Total: 500ml. ph 15:07 IV: 1000ml; Total: 1500ml. ph Outcome: 14:19 Discharge ordered by . [facility] 15:08 Discharged to home ambulatory, ph 15:08 Condition: good 15:08 Discharge instructions given to patient, Instructed on discharge instructions, follow up and referral plans. Demonstrated understanding of instructions, follow-up care, 15:09 Patient left the ED. ph Signatures: Dispatcher [employer] EDMS Sunita Clemons Corey, MD MD cha Hall, Patricia, RN RN ph
[2024-04-01 15:45] VITALS: BP 136/97; TEMP 97.5; O2SAT 100
--- NOTE | 2024-04-02 14:11 | EKG ---
Test Date: 2024-04-01 Test Time: 12:05:10 Air Brake Adjuster: HENRY MEASUREMENT RESULTS: Intervals: Rate: 71 WI: 144 QRSD: 88 QT: 416 QTc: 452 [place]: P: 48 WI: 144 QRS: 51 T: 45 INTERPRETIVE STATEMENTS: Normal sinus rhythm Normal ECG Compared to ECG 06/01/2023 01:22:32 Sinus tachycardia no longer present Electronically Signed On 04-02-24 14:07:22 CDT by Mark Gamez
== END 2024-04-01 15:09 | disposition home or self-care (01) ==
LOC: ER 11:25
DX: E87.6 Hypokalemia (principal); E86.0 Dehydration; T67.5XXA Heat exhaustion, unspecified, initial encounter; L30.9 Dermatitis, unspecified; F20.9 Schizophrenia, unspecified; F31.9 Bipolar disorder, unspecified; Z59.00 Homelessness unspecified
CPT/HCPCS: 85025; 80048; 36415; 85610; 80076; 85730; 83690; 70450; 71045; 80143; 80179; 82077; J3411 ×2; J7030 ×2; 93005; 96365; 96366; 99284